=== PATIENT | female | born 1990 | race Hispanic/Latino ===

== ENCOUNTER 2017-01-13 20:21 | Emergency (ER) | payer MEDICARE, MEDICAID ==
[~2017-01-13] VITALS: Ht 172.7 cm; Wt 50.0 kg
[~2017-01-13 20:21] MED LIST: AMLO10TA3 PO; CLON1PAT14 TD; LOSA100T3 PO; METO-274 PO; MYCO360T3 PO; PRE20 PO; SEVE800T7 PO; WARF5TAB7 PO
[2017-01-13 20:23] VITALS: BP 157/108; PULSE 72; RESP 20; O2SAT 100
[2017-01-13 21:01] LABS: BASOPHILS % (AUTO) 0.2 % (0-3); EOSINOPHILS % (AUTO) 1.9 % (0-5); MONOCYTES % (AUTO) 8.6 % (4-12); Mean Corpuscular Volume 98.3 fL (81-100); NEUTROPHILS % (AUTO) 55.2 % (40-74)
[2017-01-13 21:16] LABS: Platelet Count 47 bil/L (150-400)
[2017-01-13 21:30] VITALS: BP 140/77; PULSE 55; RESP 16; O2SAT 99
--- NOTE | 2017-01-13 21:38 | ED.REPORT ---
HPI-General Illness Date of Service Jan 13, 2017 ED Provider: Richy Mcgill MD A 26 year old female with an extensive medical history including systemic lupus , idiopathic thrombocytopenic purpura, PE, hypertension, anemia, and ESRD on hemodialysis presents to the ED from Urgent Care with lightheadedness onset 1440 today, while sitting on the couch. Associated symptoms include dizziness, subjective fever, chills, diaphoresis, and confusion. Her symptoms resolved at 1800 after drinking a Coca-Cola, although she reports dizziness currently. The patient also reports one episode of melena one week ago. She denies chest pain, SOB, loss of consciousness, focal weakness, or other symptoms. The patient has had similar symptoms in the past associated with anemia, requiring a blood transfusion. She dialyzes M//. Nursing Notes Stated Complaint: LIGHT HEADED, DIZZY Chief Complaint: General Complaint Nursing Notes Reviewed: Yes Allergies: Coded Allergies: prazosin (Verified Adverse Reaction, Intermediate, anxiety, 09/16/16) zolpidem (Verified Adverse Reaction, Intermediate, 09/16/16) 05/09/15 Pt denies allergy but states she just doesn't want to take this because "my sister got addicted to it." Uncoded Allergies: IVORY SOAP (Allergy, Intermediate, 02/16/16) Scheduled Amlodipine (Amlodipine) 10 Mg Tablet 10 MG PO HS Clonidine HCl (Clonidine 0.1 mg/24 hr Tdrm Patch) 1 Each Patch.tdwk 1 PATCH TD WEEKLY Losartan Potassium (Cozaar) 100 Mg Tablet 100 MG PO HS Metoprolol Succinate ER (Metoprolol Succinate ER) 100 Mg Tab.er.24h 100 MG PO DAILY Prednisone (PredniSONE) 20 Mg Tablet 40 MG PO DAILY Sevelamer Carbonate (Renvela) 800 Mg Tablet 800 MG PO TID Warfarin Sodium (Warfarin Sodium) 5 Mg Tablet 5 MG PO DAILY Miscellaneous Medications Mycophenolate DR (Mycophenolic DR) 360 Mg Tablet 720 MG PO General Time Seen by MD: 21:33 Chief Complaint Other (Lightheadedness) Hx Obtained From: Patient Arrived By: Walk-in Sudden in Onset?: Yes Onset Occurred: 5 - 8 hours ago Symptom Duration: 1 - 4 hours Severity: Current: No pain currently Severity: Maximum: No pain Associated with: Reports: Diaphoresis, Fever, Denies: Chest pain, Shortness of breath Context Related History: Reports Autoimmune disorder, Reports Depression, Reports Psychiatric history Recent Healthcare: No recent doctor visit Similar Sx Previous: Yes Past Medical History Past Medical History Notes: PCP: Dr. Hanson Senior Research Associate: Dr. Cook Biological Scientist: Dr. 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 Endoscopy. Colonoscopy. Portocath. Fistula. Reports: Cholecystectomy Family History Reviewed, not relevant. Smoking History Former Smoker Social History Alcohol Use: Denies alcohol use Drug Use: THC Other Social History: Local resident Ambulatory Status Independent Review of Systems Full Review of Systems Constitutional: Reports: Chills (Resolved), Fever (Subjective, Resolved) Respiratory: Denies: Non-productive cough, Shortness of breath Cardiovascular: Denies: Chest pain GI: Reports: Melena (x1, one week ago), Denies: Diarrhea, Vomiting Skin: Reports Diaphoresis (Resolved) Neurologic: Reports: Dizziness, Lightheaded (Resolved), Denies: Change LOC, Focal weakness Psychiatric: Reports: Confusion (Resolved) Complete sys rev & neg: except as marked. Physical Exam Vital Signs Vital Signs Date Time Temp Pulse Resp B/P Pulse Ox O2 Delivery O2 Flow Rate FiO2 01/14/17 02:17 64 16 155/84 98 Room Air 01/14/17 01:23 36.6 01/14/17 01:23 68 16 132/69 98 Room Air 01/13/17 23:28 60 16 150/87 98 Room Air 01/13/17 21:30 55 16 140/77 99 Room Air 01/13/17 20:23 36.7 72 20 157/108 100 Room Air Initial VS: Reviewed, Vital signs abnormal Head / Eyes: Atraumatic, Normocephalic ENT: Conjunctiva normal, No scleral icterus Neck: Supple, Full range of motion Skin: Warm, Dry, No cyanosis Neurologic: Alert, Oriented, Nonfocal Psychiatric: Mood/affect normal, Behavior normal, Normal thought content General/Constitutional: Awake, Alert, No acute distress, Well developed Appearance / Presentation: Positive: Pale (Mild) Respiratory / Chest: Breath sounds NL, Breath sounds = bilat, No respiratory distress Cardiovascular: Heart rate NL, Regular rhythm, Heart sounds NL, No gallop, No murmurs, No rubs Abdomen: Soft Tenderness/Guarding/Rebound: Positive: Tender LLQ... (Mild), Tender LUQ... ( Mild) Interpretation & Diagnostics URINE TEST: Negative URINE DIPSTICK: 1.000 sp gravity 9 pH ++(100) Protein 50mg/dl Glucose Normal Urobilinogen ~250 Charan/ml Occult Blood Otherwise Negative Lab Results Interpretation Result Diagram: 01/13/17205101/14/17 012 Test 01/13/17 20:52 01/13/17 21:46 01/14/17 01:26 White Blood Count 4.6th/mm3 (3.8-10.1) Red Blood Count 3.47mil/mm3 (3.90-5.20) Hemoglobin 11.1g/dL (12.0-15.6) Hematocrit 34.1% (35.0-46.0) Mean Corpuscular Volume 98.3fL (81-100) Mean Corpuscular Hemoglobin 32.0pg (27.0-35.0) Mean Corpuscular Hemoglobin Concent 32.6% (32.0-37.0) Red Cell Distribution Width 14.6% (12.3-15.4) Platelet Count 47bil/L (150-400) Neutrophils (%) (Auto) 55.2% (40-74) Lymphocytes (%) (Auto) 34.1% (14-46) Monocytes (%) (Auto) 8.6% (4-12) Eosinophils (%) (Auto) 1.9% (0-5) Basophils (%) (Auto) 0.2% (0-3) Prothrombin Time 10.1sec (8.1-12.5) Prothromb Time International Ratio 0.95ratio Sodium Level 138mEq/L (134-144) Chloride Level 98mEq/L (97-108) Carbon Dioxide Level 25mmol/L (18-29) Blood Urea Nitrogen 39mg/dL (6-20) Creatinine 8.75mg/dL (0.57-1.00) Estimat Glomerular Filtration Rate 8mL/min (>59) Glucose Level 88mg/dL (60-99) Calcium Level 8.4mg/dL (8.5-10.1) Total Bilirubin 0.3mg/dL (0.0-1.2) Aspartate Amino Transf (AST/SGOT) 21U/L (0-50) Alanine Aminotransferase (ALT/SGPT) 15U/L (0-32) Alkaline Phosphatase 100U/L (25-150) Total Protein 7.3g/dL (6.4-8.4) Albumin 4.2g/dL (3.4-5.0) Hold Ubrroughs Top Tube Received (Received) Hold Urine Received (Received) Potassium Level 6.2mEq/L (3.5-5.2) Lab Results Interpretation: Hyperkalemia, CKD ECG Interpretation ECG Interpretation: Sinus rhythm rate 55 Time: 22:20 Interpreted by: ED physician Re-Eval/Medical Decision Med Decision/Clinical Course 26-year-old female with chronic kidney disease scheduled for dialysis at 10:00 this morning. She presents with some general malaise and lightheadedness. She is found to have mild chronic anemia and hyperkalemia at 6.5. She refused Kayexalate. She was given Lasix and hydration. Her K dropped from 6.5-6.2. She has no EKG changes. She will receive dialysis this a.m. as previously scheduled. She will return here if she has further problems. Source of Hx: Old records Time of Eval: 02:00 Patient Status: Condition improved Re-Evaluation/Progress Note: Discussed with patient lab results, diagnosis, and plan for discharge. Follow-up and return to the ER instructions given. Patient agrees with plan for care and all questions were addressed. Counseled Regarding: Diagnosis, Lab results, Need for follow-up, When/why to return to ED Discharge & Departure Primary Impression: Hyperkalemia Disposition: Home Discharge Condition All VS Reviewed: Yes Condition: Improved Patient Instructions: Hyperkalemia Adult (ED) Additional Instructions: Your potassium was high at 6.5. It came down to 6.2. There are no EKG changes. Keep your dialysis appointment as scheduled today to remove the remainder of the extra potassium. Referrals: Jose Hanson DO (PCP) Scribe Attestation Portions of this note were transcribed by Teodora Nur. I, Dr. Mcgill, personally performed the history, physical exam, and medical decision-making; I reviewed and confirmed the accuracy of the information in the transcribed note. Signed by: Seda Flores, 01/14/2017, 02:40 copies to: Jose Hanson DO Leibrand, Howard L MD Jan 13, 2017 21:38 TEODORA NUR Jan 13, 2017 22:08
[2017-01-13] MEDS ORDERED: Furosemide 10 mg/mL 2 mL Inj IVPUSH ONE (21:55)
[2017-01-13] MEDS ORDERED: 0.9% Sodium Chloride 500 ML IV ONE (21:55)
[2017-01-13] MEDS ORDERED: LORazepam 0.5 mg Tablet PO ONE (22:20)
[2017-01-13 22:43] LABS: INR 0.95 ratio
[2017-01-13 23:28] VITALS: BP 150/87; PULSE 60; RESP 16; O2SAT 98
[2017-01-14] MEDS ORDERED: Sodium Polystyrene Sulfonate 0.25 Gm/mL 500 mL Suspension PO ONE (00:30)
[2017-01-14 01:23] VITALS: BP 132/69; PULSE 68; RESP 16; O2SAT 98
[2017-01-14 02:17] VITALS: BP 155/84; PULSE 64; RESP 16; O2SAT 98
== END 2017-01-14 02:25 | disposition home or self-care (01) ==
LOC: SED 20:21
DX: E87.5 Hyperkalemia (principal); I12.0 Hypertensive chronic kidney disease with stage 5 chronic kidney disease or end stage renal disease; N18.6 End stage renal disease; D69.3 Immune thrombocytopenic purpura; M32.9 Systemic lupus erythematosus, unspecified; D63.1 Anemia in chronic kidney disease; Z99.2 Dependence on renal dialysis; F12.10 Cannabis abuse, uncomplicated; Z86.711 Personal history of pulmonary embolism; Z79.52 Long term (current) use of systemic steroids; Z79.01 Long term (current) use of anticoagulants; Z88.8 Allergy status to other drugs, medicaments and biological substances
CPT/HCPCS: 80053; 84132; 85025; 85610; 93005; 96374; 99285; J1940; J7040

== ENCOUNTER 2017-02-16 14:30 | Observation (INO) | payer MEDICARE, MEDICAID ==
[~2017-02-16] VITALS: Ht 152.4 cm; Wt 45.9 kg
[2017-02-16 14:32] VITALS: BP 119/83; PULSE 71; RESP 18; O2SAT 100
--- NOTE | 2017-02-16 15:01 | ED.REPORT ---
HPI-Chest Pain Under 40 Date of Service February 16, 2017 ED Provider: Hank Courtney MD 26 y/o female with a hx of CHF, PE, HTN and ESRD on hemodialysis presents to the ED complaining of non-radiating substernal chest pain, onset 0500 after she woke up. The pt reports the pain is more like a pressure with a "cold feeling" and rates it 7/10. She states it worsens when she lays down or walks around but is slightly better upon sitting up. Associated sx include mild SOB and mild palpitations. She states she also has diaphoresis at night and nausea, both of which are baseline for her. The pt denies cough, edema and hx of DVT. She also denies any association of her sx with dialysis. Her sx are similar to the sx before when she was diagnosed with pneumonia. She states her sx are not as severe as they were when she was diagnosed with PE. She is currently taking antibiotics for a UTI. She is not taking any blood thinners. Nursing Notes Stated Complaint: CHEST PAIN Chief Complaint: Chest Pain Nursing Notes Reviewed: Yes ([facility] not reconciled) Allergies: Coded Allergies: prazosin (Verified Adverse Reaction, Intermediate, anxiety, 09/16/16) zolpidem (Verified Adverse Reaction, Intermediate, 09/16/16) 05/09/15 Pt denies allergy but states she just doesn't want to take this because "my sister got addicted to it." Uncoded Allergies: IVORY SOAP (Allergy, Intermediate, 02/16/16) Scheduled Amlodipine (Amlodipine) 10 Mg Tablet 10 MG PO QAM Losartan Potassium (Losartan Potassium) 100 Mg Tablet 100 MG PO QAM Metoprolol Succinate ER (Metoprolol Succinate ER) 100 Mg Tab.er.24h 100 MG PO QAM Omeprazole (Omeprazole) 20 Mg Capsule.dr 20 MG PO DAILY Sevelamer Carbonate (Renvela) 800 Mg Tablet 800 MG PO TIDWM Zolpidem (Zolpidem) 5 Mg Tablet 5 MG PO HS General Time Seen by MD: 14:45 Chief Complaint Chest pain Hx Obtained From: Patient Arrived By: Walk-in Sudden in Onset?: Yes Onset Occurred: Yesterday Symptom Duration: Since onset Location: : Substernal Quality: Pressure Radiation: : Does not radiate Severity: Current: Pain level 7 out of 10 Severity: Maximum: Pain level 7 out of 10 Recent Healthcare: No recent doctor visit Similar Sx Previous: Yes Past Medical History Past Medical History Notes: PCP: Dr. Hanson Postdoctoral Research Associate: Dr. Cook Automatic Lump Making Machine Tender: Dr. 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 Endoscopy. Colonoscopy. Portocath. Fistula. Reports: Cholecystectomy Family History Reviewed, not relevant. Smoking History Former Smoker Social History Alcohol Use: Denies alcohol use Drug Use: THC Other Social History: Local resident Ambulatory Status Independent Review of Systems Respiratory: Reports: Shortness of breath, Denies: Non-productive cough Cardiovascular: Reports: Chest pain, Palpitations, Denies: Edema Complete sys rev & neg: except as marked. Physical Exam Initial Vital Signs Vital Signs (First) Date Time Temp Pulse Resp B/P Pulse Ox O2 Delivery O2 Flow Rate FiO2 02/16/17 14:32 36.4 71 18 119/83 100 Room Air Initial VS: Reviewed, Vital signs normal Head / Eyes: Atraumatic, Normocephalic, PERRL Neck: Supple, Non-tender, Full range of motion Abdomen / GI: Soft, Non-tender, No guarding, No rebound, No distention Extremities: Vascular intact, Neuro intact, No swelling, No tenderness Skin: Warm, Dry, No cyanosis Neurologic: Alert, Oriented, Nonfocal General/Constitutional: Awake, Alert, Cooperative Appearance / Presentation: Positive: Cachectic, Frail Respiratory / Chest: Atraumatic, Breath sounds NL, Breath sounds = bilat, No respiratory distress, No rales, No rhonchi, No wheezing Not hypoxic. Cardiovascular: Heart rate NL, Regular rhythm, Heart sounds NL, No gallop, No murmurs, No rubs Interpretation & Diagnostics Lab Results Interpretation Result Diagram: 02/16/17 1458 02/16/17 1458 Test 02/16/17 14:58 White Blood Count 4.1th/mm3 (3.8-10.1) Red Blood Count 3.92mil/mm3 (3.90-5.20) Hemoglobin 12.9g/dL (12.0-15.6) Hematocrit 37.5% (35.0-46.0) Mean Corpuscular Volume 95.7fL (81-100) Mean Corpuscular Hemoglobin 32.9pg (27.0-35.0) Mean Corpuscular Hemoglobin Concent 34.4% (32.0-37.0) Red Cell Distribution Width 13.5% (12.3-15.4) Platelet Count 51bil/L (150-400) Neutrophils (%) (Auto) 57.5% (40-74) Lymphocytes (%) (Auto) 28.3% (14-46) Monocytes (%) (Auto) 12.8% (4-12) Eosinophils (%) (Auto) 1.0% (0-5) Basophils (%) (Auto) 0.2% (0-3) Sodium Level 138mEq/L (134-144) Potassium Level 3.4mEq/L (3.5-5.2) Chloride Level 90mEq/L (97-108) Carbon Dioxide Level 30mmol/L (18-29) Blood Urea Nitrogen 12mg/dL (6-20) Creatinine 4.60mg/dL (0.57-1.00) Estimat Glomerular Filtration Rate 17mL/min (>59) Glucose Level 84mg/dL (60-99) Calcium Level 9.3mg/dL (8.5-10.1) Magnesium Level 1.8mg/dL (1.6-2.6) Total Bilirubin 0.4mg/dL (0.0-1.2) Aspartate Amino Transf (AST/SGOT) 21U/L (0-50) Alanine Aminotransferase (ALT/SGPT) 10U/L (0-32) Alkaline Phosphatase 98U/L (25-150) Troponin T < 0.010ug/L (0.0-0.011) Total Protein 8.4g/dL (6.4-8.4) Albumin 4.4g/dL (3.4-5.0) Hold Burroughs Top Tube Received (Received) Lab Results Interpretation: CBC mild thrombocytopenia (chronic) CMP chronic renal failure, post dialysis Troponin negative ECG Interpretation ECG Interpretation: Normal sinus rhythm. Rate 63 Inverted T waves, V2, V3 and possibly V4, which is new compared to previous ECG on 01/13/17. Time: 14:46 Interpreted by: ED physician X-Ray Chest Interpretation Chest Xray Interpretation: IMPRESSION: No acute cardiopulmonary disease. Dictated by: Arnold Rachel M.D. on 02/16/2017 at 15:15 Approved by: Arnold Rachel M.D. on 02/16/2017 at 15:15 View: Portable, 1 view Interpretation / Wet Read by: Interpret - Radiologist Re-Eval/Medical Decision Med Decision/Clinical Course This is a 26-year-old female very complex past medical history who presents with an atypical chest discomfort, with a pressure discomfort, a slight shortness of breath on exertion, and a "cold feeling". Or, she denies cough, but wonders about pneumonia as a possibility. She has had prior pulmonary embolus in the past, but is not on anticoagulation at this stage due to a history of lupus-induced thrombocytopenia. Her lupus is also caused chronic renal failure and she was just dialyzed today. On exam she clinically appears well-she does not appear in physical discomfort, she is not appear toxic or ill. Her vitals are entirely normal-she is afebrile , has a normal respiratory rate, she is not tachycardic, nor she hypoxic. Her lungs are clear, I do not appreciate a murmur. Her abdomen is soft and non- tender. She has no edema. Her EKG is noted for new T-wave inversion that is nonspecific in the anterior waist V2, V3, possibly before-as compared to an EKG from 1 month ago. But she has no specific findings, no overt findings of ischemia, no findings of pericarditis (condition she has had previously as well) Her labs are reassuring, but also post dialysis. A troponin is negative. As the patient is had several CTs before, and she is immediately post dialysis which makes her poor candidate for CT contrast studies, and the fact that previous VQ imaging has been generally intermediate-in a patient with a complex history of multiple concerning items, and a nonspecific, yet changed EKG-I requested an echocardiogram to see if that would provide further direction or identify dangerous pathology. Discussed the case with the general lot attendant who knows her, who agreed that this was a reasonable approach. The echocardiogram however was interpreted by the insurance operations rep as normal. Admission abnormalities of an acute ischemia, no findings of pericarditis, no effusion, and no findings of strain from a pulmonary embolus. This too was reassuring With EKG abnormalities, the complexity of the patient's baseline-the plan is observation. The case is discussed the hospitalist who requested cardiology consultation. Discussed the case with the insurance operations rep to indicates that in the setting of the normal echocardiogram, nonspecific symptoms, he would not recommend heparinization, or anticoagulation. Again the patient remains chronically thrombocytopenic with a higher increased risk of bleeding complications, and does not have hard clinical findings of pulmonary embolus either. So at this point cardiology, nephrology, medicine and myself are in agreement that in this setting of this complex patient most prudent action is simply to to watch the patient overnight and clinically monitor At this stage a dangerous etiology has not been determined. Source of Hx: Old records Re-Evaluation/Progress : Time of Eval: 17:55 Re-Evaluation/Progress Note: Pt rechecked. Discussed lab, imaging results and plan to admit. Pt understands and agrees with the plan for admission. All questions addressed. Consultation #1: Referral / Consult Name: Braden Scruggs MD Consulted With: Nephrology Call Returned at: 16:49 Grain Receiver: Will see patient, Agrees with eval, Agrees with plan Consultation #2: Referral / Consult Name: Jose Campbell DO Consulted With: Hospitalist Call Returned at: 17:11 Grain Receiver: Will see patient, Agrees with eval, Agrees with plan, Accepts admit Consultation #3: Referral / Consult Name: Damien Gtz MD Consulted With: Cardiology Call Returned at: 17:30 Grain Receiver: Agrees with eval, Agrees with plan Note: Dr. Gtz read the EKG and agrees that it is normal. Counseled Regarding: Diagnosis, Lab results, Need for admission Discharge & Departure Primary Impression: Chest pain Chest pain type: unspecified Qualified Code: R07.9 - Chest pain, unspecified Additional Impressions: Abnormal EKG Chronic renal failure Chronic kidney disease stage: unspecified stage Qualified Code: N18.9 - Chronic kidney disease, unspecified Thrombocytopenia Lupus Systemic lupus erythematosus type: unspecified Systemic lupus erythematosus organ involvement: unspecified Qualified Code: M32.9 - Systemic lupus erythematosus, unspecified Disposition: ADMITTED TO HOSPITAL Discharge Condition All VS Reviewed: Yes Referrals: Jose Hanson DO (PCP) Scribe Attestation Portions of this note were transcribed by Carloz Moore. I, , personally performed the history, physical exam and medical decision-making;I reviewed and confirmed the accuracy of the information in the transcribed note. Signed by Seda Posada. 02/16/17 [id number] copies to: Jose Hanson DO Russell, Matthew F MD February 16, 2017 15:01 Carloz Moore February 16, 2017 15:07
[2017-02-16] MEDS ORDERED: HYDROmorphone 0.5 mg/0.5 mL iSecure Syringe IVPUSH PRN (15:05)
[2017-02-16] MEDS ORDERED: Ondansetron 2 mg/mL 2 mL Inj IVPUSH ONE (15:05)
[2017-02-16 15:10] VITALS: BP 119/81; PULSE 72; RESP 15; O2SAT 100
[2017-02-16 15:15] LABS: NEUTROPHILS % (AUTO) 57.5 % (40-74)
--- NOTE | 2017-02-16 15:16 | DRSVH ---
PROCEDURE: X-RAY CHEST ONE VIEW, PORTABLE ([id number]) INDICATIONS: CHEST PAIN TECHNIQUE: One view of the chest was acquired. COMPARISON: [facility], CR, XR CHEST 1VW (PORTABLE), 02/26/2016, 13:23. FINDINGS: Surgical changes and devices: None. Lungs and pleura: No pleural effusions or pneumothorax. Lungs are clear. Mediastinum: Mediastinal contours appear normal. Heart size is normal. Bones and chest wall: No suspicious bony lesions. Overlying soft tissues appear unremarkable. IMPRESSION: No acute cardiopulmonary disease. Dictated by: Arnold Rachel M.D. on 02/16/2017 at 15:15 Approved by: Arnold Rachel M.D. on 02/16/2017 at 15:15
[2017-02-16 15:17] LABS: BASOPHILS % (AUTO) 0.2 % (0-3); MONOCYTES % (AUTO) 12.8 % (4-12); Mean Corpuscular Hemoglobin 32.9 pg (27.0-35.0); Mean Corpuscular Volume 95.7 fL (81-100)
[2017-02-16 15:27] LABS: Platelet Count 51 bil/L (150-400)
[2017-02-16] MEDS ORDERED: HYDROmorphone 1 mg/mL Inj IVPUSH PRN (15:30)
[2017-02-16 15:36] LABS: TROPONIN T < 0.010 ug/L (0.0-0.011)
[2017-02-16 15:45] LABS: Magnesium 1.8 mg/dL (1.6-2.6)
[2017-02-16 16:00] VITALS: BP 113/56; PULSE 60; RESP 17; O2SAT 97
[2017-02-16] MEDS ORDERED: LOSA100T29 PO (17:02)
[2017-02-16] MEDS ORDERED: ZOLP5TAB6 PO (17:03)
[2017-02-16] MEDS ORDERED: OMEP20CA11 PO (17:03)
--- NOTE | 2017-02-16 17:28 | DRSVH ---
[facility] [address] [place] [place] [address] Echocardiogram Report Name: MATTEO JAMES te: 02/16/2017 Height: 60 in Hospital Exam Location: [facility] Weight: 99 lb Gender: Female BSA: 1.4 m2 : 1990 Age: 26 yrs BP: 119/81 mmHg Reason For Study: Chest pain Ordering Physician: Performed By: [facility] Interpretation Summary The left ventricle is normal in size, wall thickness, and systolic function without any focal wall motion abnormalities. The ejection fraction is estimated to be 60-65%. The right ventricle is normal in size, thickness and function. The left atrial size is normal. Right atrial size is normal. There is no significant valvular heart disease. The aortic root is normal size. Pericardial effusion has resolved. Procedure: A two-dimensional transthoracic echocardiogram with color flow and Doppler was performed. The study quality was technically good. Comparison is made with the echocardiogram of 12-26-15. The patient was in normal sinus rhythm during the exam. Left Ventricle: The left ventricle is normal in size, wall thickness, and systolic function without any focal wall motion abnormalities. The ejection fraction is estimated to be 60-65%. Assessment of diastolic parameters indicates normal left ventricular diastolic function and normal filling pressures. Right Ventricle: The right ventricle is normal in size, thickness and function. Atria: The left atrial size is normal. Right atrial size is normal. The interatrial septum is intact with no evidence for an atrial septal defect. Mitral Valve: The mitral valve is normal. Aortic Valve: The aortic valve is trileaflet. The aortic valve opens well. No aortic regurgitation is present. Tricuspid Valve: The tricuspid valve is normal in structure and function. There is trace tricuspid regurgitation. The right ventricular systolic pressure is estimated at 32 mmHg assuming a right atrial pressure of 3 mm Hg. Pulmonic Valve: The pulmonic valve is normal in structure and function. There is trace pulmonic regurgitation. There is no significant valvular heart disease. Great Vessels: The aortic root is normal size. The dimensions of the ascending aorta are normal. The IVC is of normal diameter and collapses greater than 50% with a sniff. This suggests a low right atrial pressure of 3 mm Hg. Pericardium/ Pleura There is no pericardial effusion. There is no pleural effusion. MMode/2D Measurements & Calculations LVIDd: 4.2 cm LA dimension: 2.6 cm RA long axis LVOT diam LVIDs: 2.3 cm FS: 43.8 % LA A2 area: 14.3 cm RA area Ao root diam EPSS: 0.49 cm LA A4 area: 14.5 cm IVSd: 0.78 cm LA length (vol): 4.2 cm : 11.0 cm Aortic Jxn LVPWd: 0.89 cm LA vol: 42.1 ml RA vol: 21.7 ml LA vol index RA asc Aorta : 15.7 mm2 Diam: 3.1 cm : 30.4 ml/m2 LV silveira. diameter/BSA LV sys. diameter/BSA (cm/m^2): 3.0 (cm/m^2): 1.7 Doppler Measurements & Calculations Ao V2 max: 126.0 cm/secMV E max elijah MV E/A: 1.3 TR max elijah Ao max P.3 mmHg : 69.1 cm/sec Med Peak E' Elijah : 268.5 cm/sec Ao mean P.6 mmHg MV A max elijah TR max PG : 53.5 cm/sec E/E' med: 8.6 : 28.8 mmHg MV P1/2t Lat Peak E' Elijah PA V2 max : 62.6 msec : 66.2 cm/sec E/E' lat: 7.6 PA mean PG E/e' average PA Accel Time Pulm A Revs Dur : 0.14 sec MV A dur : 0.12 sec MV dec time: 0.21 sec MV P1/2t max elijah Ao V2 mean PA V2 mean : 89.3 cm/sec : 52.5 cm/sec MVA(P1/2t) Ao V2 VTI : 27.2 cm : 3.5 cm2 Pulm A Revs Dur - MV A Dur: -0.00 msec Reading Physician:DARRICK
[2017-02-16] MEDS ORDERED: Polyethylene Glycol (PEG) 17 Gm Powder PO PRN (18:10)
[2017-02-16] MEDS ORDERED: Ondansetron 2 mg/mL 2 mL Inj IVPUSH PRN (18:10)
[2017-02-16] MEDS ORDERED: Alum-Mag Hydrox-Simeth 30 mL Suspension PO PRN ×2 (18:10)
--- NOTE | 2017-02-16 18:31 | PCM.HPMED ---
Subjective Date of Service February 16, 2017 Primary Provider: Admitting Physician: Primary Care Physician: Jose Hanson DO Attending Physician: Chief Complaint: chest pain History of Present Illness: 25-year-old chronically ill female with multiple admissions for complications of systemic lupus erythematosus with past admissions for cytopenias, anemia, problems with opinion and lupus nephritis which was eventually led to end-stage renal disease now on hemodialysis. Patient has extensive medical history as listed below including ITP, PE, CHF and hypertension. Patient presents to the ER today due to substernal chest pain that began at 5 AM this morning and awoke her from sleep. Associated symptoms this chest pain include shortness of breath , diaphoresis and palpitations - but does note she usually has diaphoresis nausea at night which is baseline. Describes as pressure, rated 7 out of 10, no radiation and reports symptoms worse when lying down or with walking. Does report improvement in pain when sitting up. During her previous PE admission, patient states her symptoms without time were more severe than present symptoms. current infection includes a UTI for which she is taking antibiotics and is finishing her last day today. Patient sees Dr. Cook of rheumatology infrequently for her lupus and Dr. White of nephrology. Patient denies travel or sick contacts, currently not taking prednisone. Has a son at home and is independent. Has been on dialysis for 12 months now. Patient endorses a significant anxiety and stress over her current medical condition and states it all became a little too much over the last few days. Her sister about this and has just been feeling more anxiety regarding her current medical challenges. Patient uses Ambien for sleep most nights. Has used Ativan in the past and tolerated for anxiety. Review of Systems: Complete review of systems unremarkable unless stated in history of present illness Allergies Coded Allergies: prazosin (Verified Adverse Reaction, Intermediate, anxiety, 09/16/16) zolpidem (Verified Adverse Reaction, Intermediate, 09/16/16) 05/09/15 Pt denies allergy but states she just doesn't want to take this because "my sister got addicted to it." Uncoded Allergies: IVORY SOAP (Allergy, Intermediate, 02/16/16) Home Medications Patient takes amlodipine 10 mg daily Losartan 100 mg daily Metoprolol extended release 100 mg daily Sevelamer carbonate 800 mg 3 times a day with meals Zolpidem 5 mg each evening as needed for sleep Ciprofloxacin 250 mg, on her last dose this evening for UTI Omeprazole 20 mg daily PMH Systemic lupus erythematosus with associated lupus nephritis and Idiopathic Thrombocytopenic Purpura h/o Hypotension secondary to lupus nephritis Anxiety depression history of suicide attempt by overdose Gallbladder stones status post cholecystectomy Breast abscess status post post removal And reportedly a history of MRSA abscess ESRD on hemodialysis h/o ivc thrombus descending aortic thrombus h/o Pulmonary embolism Cephalgia with possible cervicogenic etiology Anemia secondary to chronic kidney disease Metabolic acidosis Reports: Hypertension Reports: Depression Surgical History Breast complex abscess resected. Endoscopy. Colonoscopy. Portocath. Fistula. Reports: Cholecystectomy Family History noncontributory Social History Hx Alcohol Use: No Hx Substance Use: Yes (smokes marijuana daily) Hx Tobacco Use: Yes Smoking Status: Former Smoker Exam Vital Signs Vital Sign - Last Date Time Temp Pulse Resp B/P Pulse Ox O2 Delivery O2 Flow Rate FiO2 02/16/17 15:10 72 15 119/81 100 Room Air 02/16/17 14:32 36.4 Exam Gen.: Alert, pleasant HEENT: Normocephalic atraumatic, pupils equal round and reactive to light and accommodation, moist membranes Neck: No JVD, no lymphadenopathy Cardiac: No rubs clicks murmurs or gallops, regular rate Pulmonary: No wheezes rales or rhonchi, clear to auscultation bilaterally GI: Abdomen soft, mildly tender diffusely, no guarding or peritoneal symptoms, nondistended, normal bowel sounds Extremities: No clubbing, cyanosis, edema, pulses intact 2+ at pedis bilaterally Psychiatric: Mildly melancholic mood and normal affect Neuro: Cranial nerves II through XII grossly intact, no focal deficits Lab and Diagnostics Result Diagram: 02/16/17 1458 02/16/17 1458 X-Rays, CTs and MRIs Normal chest x-ray Cardiac Echo Impressions 02/16 cardiac echo Interpretation Summary The left ventricle is normal in size, wall thickness, and systolic function without any focal wall motion abnormalities. The ejection fraction is estimated to be 60-65%. The right ventricle is normal in size, thickness and function. The left atrial size is normal. Right atrial size is normal. There is no significant valvular heart disease. The aortic root is normal size. Pericardial effusion has resolved. Assessment & Plan 26-year-old female with a competent medical history including lupus, lupus nephritis leading to end-stage renal disease, history of ITP, PE (full history above ) who presents with positional chest pain and T-wave inversions in anterior leads on EKG. Chest pain- possibly related to anxiety/stress since chest pain began a couple days ago with negative troponins now, we will rule out ACS and the differential broad given her medical history including PE although no significant strain on echo done in ER, also no pericardial effusion noted on echo, differential also includes GERD/gastritis but patient does take a PPI at home -Trend cardiac markers, repeat EKG -When necessary morphine for pain - When necessary lorazepam for anxiety -Continue metoprolol 100 mg ER daily - Continue home regimen omeprazole 20 mg - Monitor on telemetry - Currently saturating well off oxygen, if needed, supplemental oxygen for goal saturations greater than 93% - Given echo without any signs of right heart strain, cardiology consultation- we will discuss in the morning after overnight monitoring regarding possible stress test Chronic medical conditions Lupus nephritis leading to End-stage renal disease, dialysis on Tuesday, usually sees Dr. White, continue Renvelao Lupus-stable, currently not on steroids History of constipation-when necessary stool softeners Insomnia-when necessary Ambien ordered History of depression with anxiety-consider SSRI, we will start when necessary lorazepam as noted above GERD-continue omeprazole as noted above Hypertension-continue amlodipine 10 mg daily and metoprolol 100 mg ER daily as noted above History of ITP-platelets of 51, monitor daily CBC Pain Evaluation: Adequate Pain Control GI Prophylaxis: Proton Pump Inhibitor VTE Prophylaxis: Sub-Q Heparin (Unfractionated) Resuscitation Status: CPR: Attempt Resuscitation Time spent 40 minutes spent with the evaluation and management including admission and coordination of care. Greater than 50% of time spent [id number] Jose Campbell DO February 16, 2017 17:27
[2017-02-16 18:38] VITALS: BP 126/69; PULSE 69; RESP 18; O2SAT 99
--- NOTE | 2017-02-16 19:00 | NUR ---
Admit patient arrived floor via shift change got report from off going lapper Dx CP ,s/p dialysis today. Up ind son currently in room await cousin to p/u, medicated for nausea and anxiety w/prescribed prns currently w/o CP, placed on telemetry SR w/occ brenda, plan monitor heart and cardio re-eval in AM
[2017-02-16] MEDS: Ondansetron 2 mg/mL 2 mL Inj IVPUSH PRN (19:55)
[2017-02-16 20:04] VITALS: BP 111/73; PULSE 64; RESP 16; O2SAT 96
[2017-02-17] MEDS: Sodium Chloride LOK Flush 10 mL Syringe IVFLUSH SCH ×2 (00:40→07:52)
[2017-02-17] MEDS: Heparin 5,000 Unit/mL Inj SUBQ SCH ×2 (00:53→07:52)
[2017-02-17 05:18] VITALS: PULSE 56
[2017-02-17 05:43] LABS: BASOPHILS % (AUTO) 0.5 % (0-3)
[2017-02-17 05:48] LABS: EOSINOPHILS % (AUTO) 1.5 % (0-5); MONOCYTES % (AUTO) 10.2 % (4-12); Mean Corpuscular Hemoglobin 32.4 pg (27.0-35.0); Mean Corpuscular Volume 98.4 fL (81-100); Platelet Count 44 bil/L (150-400)
[2017-02-17 06:00] VITALS: BP 118/75; PULSE 57; RESP 16; O2SAT 99
[2017-02-17 06:07] LABS: Magnesium 2.1 mg/dL (1.6-2.6)
[2017-02-17] MEDS ORDERED: Pantoprazole 20 mg ER24 Tablet PO SCH (06:30)
[2017-02-17] MEDS: Ondansetron 2 mg/mL 2 mL Inj IVPUSH PRN ×2 (07:46→11:10)
[2017-02-17 08:00] VITALS: PULSE 72
[2017-02-17] MEDS ORDERED: MeTOProlol XL 50 mg ER24 Tablet PO SCH (08:30)
--- NOTE | 2017-02-17 10:24 | NUR ---
Case Management: RUIZ and Medicare Part D pamphlet were delivered and explained to pt. Original signed/dated/timed placed in pt. chart. Copy left at bedside. Cassy Nielson RN
[2017-02-17] MEDS ORDERED: HYDROmorphone 0.5 mg/0.5 mL iSecure Syringe IVPUSH PRN (11:20)
--- NOTE | 2017-02-17 11:34 | PCM.DIMED ---
Discharge Instructions Date of Service February 17, 2017 Dates of Hospitalization February 16, 2017 at 17:42 Discharge Diagnosis Discharge Diagnosis Chest pain likely related to anxiety/stress from overall medical condition with history of underlying depression Chronic medical conditions Systemic lupus erythematosus with associated lupus nephritis and Idiopathic Thrombocytopenic Purpura h/o Hypotension secondary to lupus nephritis Anxiety depression history of suicide attempt by overdose Gallbladder stones status post cholecystectomy Breast abscess status post post removal And reportedly a history of MRSA abscess ESRD on hemodialysis h/o ivc thrombus descending aortic thrombus h/o Pulmonary embolism Cephalgia with possible cervicogenic etiology Anemia secondary to chronic kidney disease Metabolic acidosis Reports: Hypertension Reports: Depression Medication Instructions I have started citalopram for anxiety/depression Test Results Troponins have remained negative EKG with minor T-wave inversions anteriorly, no significant acute ischemic changes. Echo did not show any pericardial effusion and read by cardiology with no plans for stress test needed while hospitalized Diet Renal Diet Activity No restrictions Call your provider Fever or Chills, Shortness of breath, Chest pain Patient Instructions I believe her chest pain is likely a combination of stress and anxiety and is not related to your heart. I would like you to take a dose of citalopram and follow up with her primary care doctor for dose adjustment. This medication does not need to be renally dosed for those on hemodialysis. I think some poorly follow-up with Dr. Nicholas Franz to talk about her symptoms and how you are tolerating your antidepressant. Follow-up plan Please follow-up with your current care physician 1-2 weeks Please follow up with your physicians at [facility] when available Please continue following up with Dr. White of nephrology and Dr. Cook rheumatology as instructed Follow-up Provider: Rebekah Bailey MD Follow-up with PCP in: 1 week Jose Campbell DO February 17, 2017 11:34
[2017-02-17] MEDS ORDERED: CITA10TA9 PO (11:36)
[2017-02-17] MEDS ORDERED: HYDROmorphone 1 mg/mL Inj IVPUSH PRN (11:36)
--- NOTE | 2017-02-17 11:42 | PCM.DC.MED ---
Discharge Summary Date of Service February 17, 2017 Dates of Hospitalization Date of Hospital Admission February 16, 2017 at 17:42 Date of Discharge: February 17, 2017 Providers: Admitting Physician: Tanisha Campbell DO Primary Care Physician: Tanisha Hanson DO Attending Physician: Tanisha Campbell DO Diagnosis at Time of Discharge Diagnosis at Time of Discharge Chest pain likely noncardiac related to anxiety/stress from overall medical condition with history of underlying depression Chronic medical conditions Systemic lupus erythematosus with associated lupus nephritis and Idiopathic Thrombocytopenic Purpura h/o Hypotension secondary to lupus nephritis Anxiety depression history of suicide attempt by overdose Gallbladder stones status post cholecystectomy Breast abscess status post post removal And reportedly a history of MRSA abscess ESRD on hemodialysis h/o ivc thrombus descending aortic thrombus h/o Pulmonary embolism Cephalgia with possible cervicogenic etiology Anemia secondary to chronic kidney disease Metabolic acidosis Reports: Hypertension Reports: Depression Procedures XRay, CTs & MRIs Normal chest x-ray Cardiac Echo Impression 02/16 cardiac echo Interpretation Summary The left ventricle is normal in size, wall thickness, and systolic function without any focal wall motion abnormalities. The ejection fraction is estimated to be 60-65%. The right ventricle is normal in size, thickness and function. The left atrial size is normal. Right atrial size is normal. There is no significant valvular heart disease. The aortic root is normal size. Pericardial effusion has resolved. Brief History 26-year-old chronically ill female with multiple admissions for complications of systemic lupus erythematosus with past admissions for cytopenias, anemia, problems with opinion and lupus nephritis which was eventually led to end-stage renal disease now on hemodialysis. Patient has extensive medical history as listed below including ITP, PE, CHF and hypertension. Patient presents to the ER today due to substernal chest pain that began at 5 AM this morning and awoke her from sleep. Associated symptoms this chest pain include shortness of breath , diaphoresis and palpitations - but does note she usually has diaphoresis nausea at night which is baseline. Describes as pressure, rated 7 out of 10, no radiation and reports symptoms worse when lying down or with walking. Does report improvement in pain when sitting up. During her previous PE admission, patient states her symptoms without time were more severe than present symptoms. current infection includes a UTI for which she is taking antibiotics and is finishing her last day today. Patient sees Dr. Cook of rheumatology infrequently for her lupus and Dr. White of nephrology. Patient denies travel or sick contacts, currently not taking prednisone. Has a son at home and is independent. Has been on dialysis for 12 months now. Patient endorses a significant anxiety and stress over her current medical condition and states it all became a little too much over the last few days. Her sister about this and has just been feeling more anxiety regarding her current medical challenges. Patient uses Ambien for sleep most nights. Has used Ativan in the past and tolerated for anxiety. Hospital Course 26-year-old female with a competent medical history including lupus, lupus nephritis leading to end-stage renal disease, history of ITP, PE (full history above ) who presents with positional chest pain and T-wave inversions in anterior leads on EKG - repeat EKG is unchanged without any acute ischemic changes, troponins have remained negative. Cardiology was contacted and did not believe patient needed to have a stress test done during this admission may consider if symptoms recur given complex medical history and risk factors of end -stage renal disease. Chest pain- possibly related to anxiety/stress since chest pain began a couple days ago with negative troponins now, ACS ruled out and unlikely PE given her stable saturations on room air as well as no evidence for right heart strain on her echo. No plan for stress test during his admission, follow-up with her PCP given not have started citalopram 10 mg which does not need to be renally dosed. Patient knows her primary care physician can help titrate this medication and she has been instructed to take in the evening if she is getting sleeplessness medication and take in the morning if having trouble sleeping. -Patient instructed to follow-up with her rn progressive care and swing manager as previously directed -Continue metoprolol 100 mg ER daily - Continue home regimen omeprazole 20 mg - Monitor on telemetry without significant events - Currently saturating well off oxygen, if needed, supplemental oxygen for goal saturations greater than 93% Chronic medical conditions Lupus nephritis leading to End-stage renal disease, dialysis on Tuesday, usually sees Dr. White, continue Renvelao Lupus-stable, currently not on steroids History of constipation-when necessary stool softeners Insomnia-when necessary Ambien ordered History of depression with anxiety-consider SSRI, we will start when necessary lorazepam as noted above GERD-continue omeprazole as noted above Hypertension-continue amlodipine 10 mg daily and metoprolol 100 mg ER daily as noted above History of ITP-platelets of 51, monitor daily CBC Exam Vital Signs (Last) Date Time Temp Pulse Resp B/P Pulse Ox O2 Delivery O2 Flow Rate FiO2 02/17/17 08:00 72 02/17/17 06:00 36.9 16 118/75 99 Room Air Exam Gen.: Alert, pleasant HEENT: Normocephalic atraumatic, pupils equal round and reactive to light and accommodation, moist membranes Neck: No JVD, no lymphadenopathy Cardiac: No rubs clicks murmurs or gallops, regular rate Pulmonary: No wheezes rales or rhonchi, clear to auscultation bilaterally GI: Abdomen soft, mildly tender diffusely, no guarding or peritoneal symptoms, nondistended, normal bowel sounds Extremities: No clubbing, cyanosis, edema, pulses intact 2+ at pedis bilaterally Psychiatric: Mildly melancholic mood and normal affect Neuro: Cranial nerves II through XII grossly intact, no focal deficits Test 02/16/17 14:58 02/16/17 21:05 02/17/17 05:18 Hold Burroughs Top Tube Received (Received) Troponin T 0.010ug/L (0.0-0.011) White Blood Count 3.9th/mm3 (3.8-10.1) Red Blood Count 3.67mil/mm3 (3.90-5.20) Hemoglobin 11.9g/dL (12.0-15.6) Hematocrit 36.1% (35.0-46.0) Mean Corpuscular Volume 98.4fL (81-100) Mean Corpuscular Hemoglobin 32.4pg (27.0-35.0) Mean Corpuscular Hemoglobin Concent 33.0% (32.0-37.0) Red Cell Distribution Width 13.6% (12.3-15.4) Platelet Count 44bil/L (150-400) Neutrophils (%) (Auto) 59.0% (40-74) Lymphocytes (%) (Auto) 28.5% (14-46) Monocytes (%) (Auto) 10.2% (4-12) Eosinophils (%) (Auto) 1.5% (0-5) Basophils (%) (Auto) 0.5% (0-3) Sodium Level 142mEq/L (134-144) Potassium Level 4.5mEq/L (3.5-5.2) Chloride Level 95mEq/L (97-108) Carbon Dioxide Level 29mmol/L (18-29) Blood Urea Nitrogen 29mg/dL (6-20) Creatinine 7.56mg/dL (0.57-1.00) Estimat Glomerular Filtration Rate 9mL/min (>59) Glucose Level 87mg/dL (60-99) Calcium Level 8.8mg/dL (8.5-10.1) Magnesium Level 2.1mg/dL (1.6-2.6) Total Bilirubin 0.4mg/dL (0.0-1.2) Aspartate Amino Transf (AST/SGOT) 33U/L (0-50) Alanine Aminotransferase (ALT/SGPT) 15U/L (0-32) Alkaline Phosphatase 95U/L (25-150) Total Protein 7.0g/dL (6.4-8.4) Albumin 4.2g/dL (3.4-5.0) Triglycerides Level 163mg/dL (0-149) Cholesterol Level 141mg/dL (100-199) LDL Cholesterol, Calculated 49.400mg/dL (0-99) VLDL Cholesterol 32.600mg/dL HDL Cholesterol 59mg/dL (>39) Cholesterol/HDL Ratio 2.39 (0.0-4.4) Discharge Medications Discharge Medications Amlodipine (Amlodipine) 10 Mg Tablet 10 MG PO QAM (Reported) Citalopram (Citalopram) 10 Mg Tablet 10 MG PO DAILY Prescribed by: TANISHA CAMPBELL DO Losartan Potassium (Losartan Potassium) 100 Mg Tablet 100 MG PO QAM (Reported) Metoprolol Succinate ER (Metoprolol Succinate ER) 100 Mg Tab.er.24h 100 MG PO QAM (Reported) Omeprazole (Omeprazole) 20 Mg Capsule.dr 20 MG PO DAILY (Reported) Sevelamer Carbonate (Renvela) 800 Mg Tablet 800 MG PO TIDWM (Reported) Zolpidem (Zolpidem) 5 Mg Tablet 5 MG PO HS (Reported) Additional med instructions I have started citalopram for anxiety/depression Followup Plan Disposition: Home Follow-up plan Please follow-up with your current care physician 1-2 weeks Please follow up with your physicians at [facility] when available Please continue following up with Dr. White of nephrology and Dr. Cook rheumatology as instructed Discharge Diet: Renal Diet Discharge Activity: No restrictions Patient Instructions I believe her chest pain is likely a combination of stress and anxiety and is not related to your heart. I would like you to take a dose of citalopram and follow up with her primary care doctor for dose adjustment. This medication does not need to be renally dosed for those on hemodialysis. I think some poorly follow-up with Dr. Nicholas Franz to talk about her symptoms and how you are tolerating your antidepressant. Follow-up Provider: Rebekah Bailey MD Follow-up with PCP in: 1 week Time spent 40 minutes spent with evaluation and management including discharge this patient. Greater than 50% time spent [id number] copies to: Haroldo White DO; Rebekah Bailey MD, David DO February 17, 2017 11:42
--- NOTE | 2017-02-17 12:47 | NUR ---
Discharge Note Pt c/o 4-6/10 chest pain this morning. Pt also c/o nausea, PRN Zofran effective for this. Pt expressed understanding of all discharge instructions, medications/Rx and follow up appts. Pt discharged home with all belongings.
--- NOTE | 2017-02-17 20:41 | CONS ---
[address] [address] CONSULTATION REPORT PATIENT: MATTEO JAMES : 1990 MR#: [id number] ADMIT: 02/16/2017 JOB ID: [id number] DATE OF SERVICE: 02/16/2017 REQUESTING PHYSICIAN: Dr. Jose Jiang. REASON FOR CONSULTATION: Management of end-stage renal disease. CHIEF COMPLAINT: Chest pain. HISTORY OF PRESENT ILLNESS: This is a 26-year-old, lady with significant past medical history of SLE, end-stage renal disease, hypertension, history of pericardial effusions, history of PE who presented to the hospital with a complaint of chest pressure. The patient is well known to the renal service. The patient reported that she started having substernal chest pain two days prior to the admission. The pain got worse while taking a deep breath. The pain is radiating to the throat. She reported that it feels like something stuck in her throat. The patient reported these symptoms to Dr. White and she was informed to come to the hospital for further investigation. The chest x-ray did not show any acute abnormalities. Echocardiogram was done last night and showed no pericardial effusion, ejection fraction was 60% to 65%. There was no significant valvular heart disease. Right ventricle is normal in size and function. Her blood pressure has been stable throughout the night. She has good oxygenation with 99% pulse ox on room air. PAST MEDICAL HISTORY: 1. SLE. 2. Lupus nephritis 3. End-stage renal disease, on hemodialysis every Tuesday, Tuesday, and Tuesday. 4. Chronic thrombocytopenia. 5. History of pulmonary embolism. 6. History of IVC thrombus and ascending aortic thrombus. 7. History of MRSA infections. 8. Breast abscess status post removal. 9. Renal osteodystrophy with poor compliance with phosphate binders. 10. Anemia of chronic kidney disease. SURGICAL HISTORY: 1. Status post right AV graft placement. 2. Status post tunneled catheter placement. 3. Status post cholecystectomy. 4. Status post breast abscess drainage. FAMILY HISTORY: Positive for coronary artery disease and hypertension in the family. SOCIAL HISTORY: The patient is a former smoker. Denies current use of alcohol, tobacco, illicit drugs. ALLERGIES: 1. ZOLPIDEM. 2. PRAZOSIN. 3. IVORY SOAP. REVIEW OF SYSTEMS: Fourteen point review of system was performed. PHYSICAL EXAMINATION: Vitals: Temperature 36.9, pulse 57, respiratory rate 16, blood pressure 118/75, O2 sat 99% on room air. General appearance: Awake, alert, oriented x3. No acute distress. HEENT: No pallor. No jaundice. No JVD. No lymphadenopathy. No thyroid enlargement. Heart: Regular rhythm. Normal S1, S2. No murmurs, rubs, or gallops. Lungs: Clear to auscultation bilaterally. Abdomen is soft, active bowel sounds. Nontender. Nondistended. No hepatosplenomegaly. Extremities: No edema, cyanosis or clubbing of the fingers. Right AV graft with good thrill. LABORATORY STUDIES: WBC 3.9, hemoglobin 11.9, platelets 44. Sodium 142, potassium 4.5, chloride 95, bicarb 29, BUN 29, creatinine 7.56. ASSESSMENT: 1. Atypical chest pain. Repeat echocardiogram is within normal limits. No RV strain. Chest x-ray showed no acute infiltrates. The patient has good oxygenation. I recommend to continue observation. If symptoms persist, will consider CT with contrast to rule out pulmonary embolus. 2. End-stage renal disease, on hemodialysis every Tuesday, Tuesday, and Tuesday. No urgent dialysis indicated at this moment. 3. Systemic lupus erythematosus complicated by lupus nephritis, idiopathic thrombocytopenia, and thrombosis. 4. Hypertension with hypertensive nephrosclerosis. Per renal standpoint, the patient can be discharged home. We will see her at the dialysis unit. The patient will follow up with her pipe installer. Thank you for the consultation. We will monitor along with you. PRASAD
== END 2017-02-17 12:34 | disposition home or self-care (01) ==
LOC: SED 14:30 → MOC 17:42
PROVIDERS: ADMIT Internal Medicine; ATTEND Internal Medicine
DX: R07.89 Other chest pain (principal); F41.8 Other specified anxiety disorders; F43.0 Acute stress reaction; M32.14 Glomerular disease in systemic lupus erythematosus; I12.0 Hypertensive chronic kidney disease with stage 5 chronic kidney disease or end stage renal disease; N18.6 End stage renal disease; D63.1 Anemia in chronic kidney disease; D69.3 Immune thrombocytopenic purpura; Z99.2 Dependence on renal dialysis; Z86.711 Personal history of pulmonary embolism; Z86.718 Personal history of other venous thrombosis and embolism; Z87.891 Personal history of nicotine dependence; G47.00 Insomnia, unspecified; K21.9 Gastro-esophageal reflux disease without esophagitis; Z86.14 Personal history of Methicillin resistant Staphylococcus aureus infection; N25.0 Renal osteodystrophy
CPT/HCPCS: 36415; 71010; 80053; 80061; 83735; 84484; 85025; 93005; 96374; 96375; 96376; 99285; C8929; G0378; J1170; J1644; J2060; J2270; J2405

== ENCOUNTER 2017-03-24 12:55 | Day surgery (SDC) | payer MEDICARE, MEDICAID ==
[~2017-03-24] VITALS: Ht 152.4 cm; Wt 45.0 kg
[~2017-03-24 12:55] MED LIST changes: +CITA10TA9 PO; -CLON1PAT14 TD; +LOSA100T29 PO; -LOSA100T3 PO; +Lactated Ringer's 1,000 ML IV ONE; -MYCO360T3 PO; +OMEP20CA11 PO; -PRE20 PO; -WARF5TAB7 PO; +ZOLP5TAB6 PO
[2017-03-24] MEDS ORDERED: Propofol 10 mg/mL 20 mL Inj ONE (12:56)
[2017-03-24 13:35] VITALS: BP 118/80; PULSE 68; RESP 16; O2SAT 100
[2017-03-24] MEDS ORDERED: 0.9% Sodium Chloride 1,000 ML IV ONE ×2 (14:31)
[2017-03-24 14:58] VITALS: BP 98/56; PULSE 67; RESP 16; O2SAT 97
[2017-03-24 15:12] VITALS: BP 100/58; PULSE 60; RESP 16; O2SAT 96
[2017-03-24 15:25] VITALS: BP 107/62; PULSE 56; RESP 16; O2SAT 96
--- NOTE | 2017-03-24 15:25 | ENDO ---
[address] [address] ENDOSCOPY PROCEDURE PATIENT: MATTEO JAMES : 1990 MR#: [id number] ADMIT: 03/24/2017 JOB ID: [id number] PROCEDURE: Esophagogastroduodenoscopy (EGD). INDICATION: Intractable vomiting. ANESTHESIA: Please see anesthesia report for details regarding ASA classification, Mallampati score, and medications. INSTRUMENT USED: GIF H 180 J. PROCEDURE DETAILS: After informed consent was obtained, the patient was brought into the GI suite, where she was placed on oxygen via nasal cannula and monitored with continuous pulse oximeter, telemetry, and blood pressure monitoring. A time-out was performed, then she was placed in the left lateral decubitus position and medications were administered for sedation. A bite block was placed. The standard esophagogastroduodenoscopy scope was inserted through the bite block and advanced under direct visualization to the second portion of the duodenum without difficulty. FINDINGS: 1. Normal appearing duodenal bulb, first and second portion. Multiple random biopsies were obtained. 2. Normal appearing pylorus. 3. In the antrum and body of stomach there was some scattered old blood, a minimal amount. There was also erythema noted in the antrum and body of the stomach. Multiple random biopsies were obtained. 4. Retroflexed views in the gastric body revealed a normal-appearing cardia and fundus. 5. The GE junction was regular at 35 cm. 6. Normal-appearing esophagus. IMPRESSION: Gastritis with evidence of a small amount of old blood in the stomach. No active bleeding seen and no etiology for bleeding was noted. RECOMMENDATIONS: 1. PPI daily. 2. Proceed to colonoscopy. PROCEDURE PERFORMED: Colonoscopy. INDICATION: Rectal bleeding. ANESTHESIA: Please see above for ASA classification, Mallampati score, and medications. INSTRUMENT USED: PCF H 180 AL PREPARATION QUALITY: Good. PROCEDURE DETAILS: After completion of the EGD exam, the patient was turned and then a digital rectal exam was performed, which was unremarkable. The colonoscope was then inserted into the rectum and advanced under direct visualization to the terminal ileum, which was identified by the presence of the ileocecal valve and villous appearing mucosa of the terminal ileum. Once the terminal ileum was reached, the colonoscope was withdrawn back into the rectum as the mucosa and lumen were examined. In the rectum, retroflexion was performed. Following retroflexion, the remaining air in the rectum was suctioned and the procedure was completed. FINDINGS: Normal exam from rectum to terminal ileum. IMPRESSION: Normal colonoscopy. RECOMMENDATIONS: 1. Fiber rich diet. 2. Suspect rectal bleeding from benign anorectal disease. COMPLICATIONS: None. ESTIMATED BLOOD LOSS: Zero. CC: Dr. Garcia
--- NOTE | 2017-03-24 15:26 | PCM.HPANE ---
Patient Data Surgeon Admitting Provider: Attending Provider:Colin Bailey MD Primary Care Physician:Jose Hanson DO Other Provider:[facility] Reason for Visit Blood In Stool, Intractable Vomiting Ht/WT & BMI Body Mass Index Allergies Coded Allergies: nitrofurantoin (Verified Allergy, Unknown, 03/24/17) prazosin (Verified Adverse Reaction, Intermediate, anxiety, 09/16/16) Uncoded Allergies: IVORY SOAP (Allergy, Intermediate, 02/16/16) Past Anesthesia History Anesthesia History: Denies:: Abnormal Airway, Anesthesia Reactions, Difficult Intubation, Fam Anesthesia Reaction, Fam Malignant Hypertherm, Malignant Hyperthermia Diabetes History Hx Diabetes?: No MRSA MRSA: Yes (2011) Medications Active Scripts Citalopram 10 Mg Snubyv49 Mg PO DAILY #30 TABLET Ref 0 Prov:Jose Campbell DO 02/17/17 Reported Medications Zolpidem 5 Mg Tablet5 Mg PO HS 02/16/17 Omeprazole 20 Mg Capsule.dr20 Mg PO DAILY 02/16/17 Losartan Potassium 100 Mg Lwmiof759 Mg PO QAM 02/16/17 Metoprolol Succinate ER 100 Mg Tab.er.32a286 Mg PO QAM 09/15/16 Sevelamer Carbonate (Renvela)800 Mg Agnnwk192 Mg PO TIDWM 03/17/16 Amlodipine 10 Mg Upsewm78 Mg PO QAM #30 02/16/16 History History of ENT Problems?: Yes HEENT History: Denies:: Abnormal Airway Cataracts Difficult Intubation Dysphagia Hearing Problem Sinus Problem Denture Type: None Teeth Condition: Within Normal Limits Hx of Heart Problems?: No Cardiovascular History: Positive for:: Chest Pain Congestive Heart Failure Edema Hypertension Denies:: AICD Atrial Fibrillation Cardiac Surgery Heart Murmur Irregular Heartbeat Pacemaker Thrombophlebitis Valvular Heart Disease Hx of Respiratory Problem?: Yes Respiratory History: Positive for:: Dyspnea Pneumonia Denies:: Asthma COPD Chest Surgery Cough Emphysema Hemoptysis Tuberculosis Hx Neurologic Problems?: Yes Neurological History: Positive for:: Dizziness Headaches Seizures Denies:: Alzheimer's Disease CVA Dementia Parkinson's Disease Hx of GI Problems?: Yes Hx of Problems?: Yes Genitourinary History: Positive for:: HX of Hemodialysis (Tuesday, and Tuesday. ) Kidney Stones Urinary Tract Infection HX of Peritoneal Dialysis: No Female Hx: Positive for:: Problems with Breasts? (hx of breast abscess s/p I&D ) Denies:: Currently Endometriosis Pelvic Inflammatory Skin History: Denies:: History Skin Disorders? Hx Musculoskeletal Problems?: Yes Musculoskeletal History: Positive for:: Systemic Lupus (Dx 18 years of age) Denies:: Back Injury Joint Replacement Musculoskeletal Trauma Hx of Psycho/Social Problems?: Yes Psycho Social History: Positive for:: Anxiety Hx Depression Suicide Attempt (2009, no current thoughts of suicide.) Denies:: Bipolar Disorder Hx Surgeries?: Yes Hx Any Other Health Problems?: Yes Other History: Positive for:: Hospitalization Denies:: Cancer Endocrine Disease Thyroid Disease History Blood Transfusions: Positive for:: Blood Transfusions Denies:: Blood Transfuse Reaction Hx Diabetes: No Hx Alcohol Use: NoHx Substance Use: Yes (smokes marijuana daily) Smoking Status: Former Smoker Have You Smoked inLast 12 mo: Yes (marijuana) Stop/Bang Risk Assessment Category Category 1A: Patient has history of documented sleep apnea, and HAS NOT received any narcotic, sedative or anesthesia administration during this stay. Category 1B: Patient has history of documented sleep apnea, and HAS received any narcotic , sedative or anesthesia administration during this stay Category 2: Patient has SUSPECTED Obstructive Sleep Apnea, and HAS received any narcotic , sedative or anesthesia administration during this stay. Category 3: Patient has SUSPECTED Obstructive Sleep Apnea and HAS NOT received narcotic, sedative or anesthesia administration during this stay. Category 4: Outpatient in Procedural Areas with known sleep apnea or who screen positive for High Risk via the STOP/BANG questionnaire. Exam Exam General Appearance: Alert, Oriented X3, Cooperative, No Acute Distress HEENT/AIRWAY: MP 2 Lungs: Clear to Auscultation Heart: Exam Unremarkable Plan Impression Patient chart reviewed, patient interviewed and anesthestic plan with risks, benefits, and alternatives discussed, and informed consent obtained. ASA Physical Status: ASA3 Severe Disease Anesthetic Plan: MAC Bene/Risks/Altern/Consents: Yes HP Complete Prior to Induction: Yes Marcial Doyle MD Mar 24, 2017 09:32
--- NOTE | 2017-03-28 14:16 | PATH ---
SURGICAL PATHOLOGY Attending Physician:Adonis Saul CASE STATUS: Signed Out PATIENT NAME: MATTEO JAMES PID: [id number] : 1990 DATE COLLECTED:03/24/2017 00:00 SPECIMEN: 1: Gastric, Biopsy 2: Duodenum, Biopsy CLINICAL HISTORY: 1). GASTRIC BIOPSY 2). DUODENAL BIOPSY FINAL DIAGNOSIS: 1.GASTRIC BIOPSY: GASTRIC CORPUS WITH MILD CHRONIC GASTRITIS. Negative for Helicobacter organisms. Negative for intestinal metaplasia. No evidence of dysplasia or malignancy. 2.DUODENUM BIOPSY: NO DIAGNOSTIC ABNORMALITY. Negative for intraepithelial lymphocytosis, villous blunting, or other features of celiac sprue. Negative for Giardia organisms, dysplasia and malignancy. ICD10 K29.70 GROSS DESCRIPTION: The specimens are received in formalin, labeled with the patient's name and sublabeled as the following: (1) gastric BXs; (2) duodenal BXs. (1) The specimen consists of multiple fragments of lopez-white, glistening, semi-translucent tissue (0.4 x 0.3 x 0.1 cm in aggregate). Section code: (1A) tissue. Specimen entirely submitted. (2) The specimen consists of multiple fragments of lopez-white, glistening, rubbery, semi-translucent tissue (0.5 x 0.2 x 0.2 cm in aggregate). Section code: (2A) tissue. Specimen entirely submitted. ([id number]) MICRO DESCRIPTION: See diagnosis. ICD-9 CODES: CPT CODES: 1: 90899 2: 70138 Electronically Signed Out Raoul Thao MD [facility] [address], [place] [address] Technical component performed at [facility], [facility] [address], [place], [address]
== END 2017-03-24 23:59 | disposition home or self-care (01) ==
LOC: END 12:55
PROVIDERS: ATTEND Internal Medicine Gastroenterology
DX: K29.51 Unspecified chronic gastritis with bleeding (principal); K92.1 Melena; R11.10 Vomiting, unspecified; I12.0 Hypertensive chronic kidney disease with stage 5 chronic kidney disease or end stage renal disease; N18.6 End stage renal disease; I50.9 Heart failure, unspecified; D63.1 Anemia in chronic kidney disease; K21.9 Gastro-esophageal reflux disease without esophagitis; R60.0 Localized edema; F41.8 Other specified anxiety disorders; M32.14 Glomerular disease in systemic lupus erythematosus; F12.90 Cannabis use, unspecified, uncomplicated; Z99.2 Dependence on renal dialysis; Z86.14 Personal history of Methicillin resistant Staphylococcus aureus infection; Z87.442 Personal history of urinary calculi; Z87.891 Personal history of nicotine dependence
CPT/HCPCS: 43239; 45378; 88305; J7030

== ENCOUNTER 2017-04-26 02:37 | Inpatient (IN) | payer MEDICARE, MEDICAID ==
[2017-04-26] VITALS (8 sets, daily range): BP systolic 107–164; BP diastolic 68–108; PULSE 66–104; RESP 14–20; O2SAT 96–100
[~2017-04-26] VITALS: Ht 152.4 cm; Wt 46.3 kg
[~2017-04-26 02:37] MED LIST changes: -Lactated Ringer's 1,000 ML IV ONE
--- NOTE | 2017-04-26 02:55 | ED.REPORT ---
HPI-General Illness Date of Service Apr 26, 2017 ED Provider: Vinay Cuenca MD Pt is a 26 year old female with a hx of kidney failure on dialysis, Lupus and HTN presenting to the ED complaining of a fever of 102 onset yesterday. Associated symptoms include right flank and abdominal pain, headache, vomiting, and shaking chills. Denies any dysuria, or productive cough. She has been following up with Dr. Oviedo for her Lupus medication. But is not currently on immune modifying agents be on intermittent prednisone. She has been chronically noncompliant with her meds. She had dialysis yesterday with no issues. Nursing Notes Stated Complaint: FEVER,VOMITING,ABDOMINAL PAIN, DIALYSIS PATIENT Chief Complaint: General Complaint Nursing Notes Reviewed: Yes Allergies: Coded Allergies: nitrofurantoin (Verified Allergy, Unknown, 04/26/17) prazosin (Verified Adverse Reaction, Intermediate, anxiety, 04/26/17) Uncoded Allergies: IVORY SOAP (Allergy, Intermediate, 02/16/16) Scheduled Amlodipine (Amlodipine) 10 Mg Tablet 10 MG PO QAM Citalopram (Citalopram) 10 Mg Tablet 10 MG PO DAILY Losartan Potassium (Losartan Potassium) 100 Mg Tablet 100 MG PO QAM Metoprolol Succinate ER (Metoprolol Succinate ER) 100 Mg Tab.er.24h 100 MG PO QAM Omeprazole (Omeprazole) 20 Mg Capsule.dr 20 MG PO DAILY Sevelamer Carbonate (Renvela) 800 Mg Tablet 800 MG PO QID Zolpidem (Zolpidem) 5 Mg Tablet 5 MG PO HS General Time Seen by MD: 02:51 Chief Complaint Fever Hx Obtained From: Patient Arrived By: Walk-in Sudden in Onset?: No Onset Occurred: Yesterday Symptom Duration: Since onset Quality: Painful Severity: Current: Mild Severity: Maximum: Moderate Recent Healthcare: No recent hospitalization, Recent doctor visit Similar Sx Previous: No Past Medical History Past Medical History Notes: PCP: Dr. Hanson Cdl Truck Driver: Dr. Cook Programming Director: Dr. 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 Endoscopy. Colonoscopy. Portocath. Fistula. Reports: Cholecystectomy Family History Reviewed, not relevant. Smoking History Former Smoker Social History Alcohol Use: Denies alcohol use Drug Use: THC Other Social History: Local resident Ambulatory Status Independent Review of Systems Full Review of Systems Constitutional: Reports: Chills, Fever (102) Respiratory: Denies: Non-productive cough GI: Reports: Abdominal pain, Nausea, Vomiting Female: Denies: Dysuria Neurologic: Reports: Headache Complete sys rev & neg: except as marked. Physical Exam Vital Signs Vital Signs Date Time Temp Pulse Resp B/P Pulse Ox O2 Delivery O2 Flow Rate FiO2 04/26/17 06:21 36.4 69 16 139/89 96 Room Air 04/26/17 05:11 37.9 84 14 127/85 96 Room Air 04/26/17 02:43 37.8 104 18 113/82 98 Room Air Initial VS: Reviewed General/Constitutional: Well-developed, Well-nourished Head / Eyes: Atraumatic, Normocephalic, PERRL ENT: Mucous membranes moist, Conjunctiva normal, No scleral icterus Neck: Supple, Non-tender, Full range of motion Cardiovascular: Regular rate & rhythm, Heart sounds normal, Intact distal pulses Abdomen / GI: Soft, Non-tender, No guarding, No rebound, No distention Extremities: Vascular intact, Neuro intact, No swelling, No tenderness Neurologic: Alert, Oriented, Nonfocal Psychiatric: Mood/affect normal, Behavior normal, Normal thought content Respiratory / Chest: Atraumatic, No respiratory distress Lungs crackling right base Skin: Dry, Intact Cool Interpretation & Diagnostics Lab Results Interpretation Result Diagram: 04/26/17 0330 04/26/17 0330 Test 04/26/17 03:30 White Blood Count 6.2th/mm3 (3.8-10.1) Red Blood Count 3.42mil/mm3 (3.90-5.20) Hemoglobin 11.0g/dL (12.0-15.6) Hematocrit 33.2% (35.0-46.0) Mean Corpuscular Volume 97.1fL (81-100) Mean Corpuscular Hemoglobin 32.2pg (27.0-35.0) Mean Corpuscular Hemoglobin Concent 33.1% (32.0-37.0) Red Cell Distribution Width 13.3% (12.3-15.4) Platelet Count 44bil/L (150-400) Neutrophils (%) (Auto) 71.1% (40-74) Lymphocytes (%) (Auto) 18.7% (14-46) Monocytes (%) (Auto) 8.9% (4-12) Eosinophils (%) (Auto) 0.2% (0-5) Basophils (%) (Auto) 0.5% (0-3) Hematology Comments Rbc Urine Color Straw (YELLOW) Urine Appearance Hazy (CLEAR,HAZY) Urine pH 8.5 (5.0-8.0) Urine Specific Lynden 1.009 (1.003-1.035) Urine Protein 100mg/dL (NEG,TRACE) Urine Glucose (UA) 100mg/dL (NEGATIVE) Urine Ketones Negativemg/dL (NEGATIVE) Urine Occult Blood Small (NEGATIVE) Urine Nitrite Negative (NEGATIVE) Urine Bilirubin Negative (NEGATIVE) Urine Urobilinogen Normalmg/dL (NORMAL) Urine Leukocyte Esterase Negative (NEGATIVE) Urine RBC 3-10/hpf (0-2) Urine WBC 0-5/hpf (0-5) Urine Epithelial Cells Few/hpf (NONE-MOD) Urine Crystals None seen (NONE SEEN) Urine Bacteria Few/hpf (NONE-FEW) Urine Hyaline Casts None/lpf (NONE) Urine Granular Casts None seen (NONE SEEN) Urine Waxy Casts None seen (NONE SEEN) Urine Red Blood Cell Casts None seen (NONE SEEN) Urine White Blood Cell Casts None seen (NONE SEEN) Urine Mucus None seen (None Seen) Urine Trichomonas None seen (NONE SEEN) Urine Yeast None (NONE SEEN) Urinalysis Comment None Urine Culture Reflexed Not indicated Hold Urine Received (Received) Sodium Level 142mEq/L (134-144) Potassium Level 4.5mEq/L (3.5-5.2) Chloride Level 98mEq/L (97-108) Carbon Dioxide Level 25mmol/L (18-29) Blood Urea Nitrogen 27mg/dL (6-20) Creatinine 5.94mg/dL (0.57-1.00) Estimat Glomerular Filtration Rate 12mL/min (>59) Glucose Level 93mg/dL (60-99) Calcium Level 7.5mg/dL (8.5-10.1) Magnesium Level 1.6mg/dL (1.6-2.6) Total Bilirubin 0.3mg/dL (0.0-1.2) Aspartate Amino Transf (AST/SGOT) 19U/L (0-50) Alanine Aminotransferase (ALT/SGPT) 17U/L (0-32) Alkaline Phosphatase 109U/L (25-150) Total Protein 7.0g/dL (6.4-8.4) Albumin 4.0g/dL (3.4-5.0) Lipase 73U/L (13-60) Hold Burroughs Top Tube Received (Received) X-Ray Chest Interpretation Chest Xray Interpretation: Negative. View: Portable, 1 view Interpretation / Wet Read by: Wet read ED physician Re-Eval/Medical Decision Med Decision/Clinical Course 26-year-old female with SLE presents with shaking chills and fever at home. Source of this fever is not clear. HEENT is unremarkable with clear ears and throat. There is no adenopathy. The lung initially sounded like rales in right lower lobe, but subsequent reexam shows no abnormal sounds. X-ray was basically negative. Her lab are basically noncontributory with benign CBC, negative urine, and the negative chest x-ray as noted. She remains a immune suppressed patient with documented fever and riders, suggesting possible bacteremia. Fever without chills previously had just been related to her lupus apparently, but her current symptoms remain concerning. Admitted for observation. Antibiotics deferred pending identification of an infectious source. Time of Eval: 05:38 Patient Status: Condition improved Re-Evaluation/Progress Note: Discussed plan for admission. Pt understands and agrees with plan. Consultation : Referral / Consult Name: Rachel Fragoso DO Consulted With: Hospitalist Advertising Clerk: Will see patient, Agrees with plan, Accepts admit Counseled Regarding: Diagnosis, Lab results, Need for follow-up, When/why to return to ED Discharge & Departure Primary Impression: Fever and chills Additional Impressions: ESRD on dialysis Lupus Right flank pain Disposition: ADMITTED TO HOSPITAL Discharge Condition All VS Reviewed: Yes Condition: Stable Referrals: Jose Hanson DO (PCP) Scribe Attestation Portions of this note were transcribed by Cha Kilgore. I, Dr. Cuenca personally performed the history, physical exam and medical decision-making; I reviewed and confirmed the accuracy of the information in the transcribed note. Signed by: Seda Heller, 04/26/2017 at 0600. copies to: Jose Hanson DO Roberts, Christopher W MD Apr 26, 2017 02:54 CHA KILGORE Apr 26, 2017 03:00
[2017-04-26 03:44] LABS: EOSINOPHILS % (AUTO) 0.2 % (0-5)
[2017-04-26 03:51] LABS: BASOPHILS % (AUTO) 0.5 % (0-3); MONOCYTES % (AUTO) 8.9 % (4-12); Mean Corpuscular Hemoglobin 32.2 pg (27.0-35.0); Mean Corpuscular Volume 97.1 fL (81-100); NEUTROPHILS % (AUTO) 71.1 % (40-74); Platelet Count 44 bil/L (150-400)
[2017-04-26 04:02] LABS: Magnesium 1.6 mg/dL (1.6-2.6)
[2017-04-26 04:34] LABS: APPEARANCE,URINE HAZY (CLEAR,HAZY); COLOR,URINE STRAW (YELLOW); OCCULT BLOOD,URINE SMALL (NEGATIVE); PH,URINE 8.5 (5.0-8.0); UROBILINOGEN,URINE NORMAL (NORMAL)
[2017-04-26] MEDS ORDERED: Ketorolac 15 mg/mL Inj IVPUSH ONE (04:45)
[2017-04-26] MEDS: HYDROmorphone 1 mg/mL Inj IVPUSH PRN ×2 (04:55→06:12)
[2017-04-26] MEDS ORDERED: Ondansetron 2 mg/mL 2 mL Inj IVPUSH ONE (05:05)
[2017-04-26] MEDS ORDERED: Alum-Mag Hydrox-Simeth 30 mL Suspension PO PRN (07:35)
[2017-04-26] MEDS ORDERED: Polyethylene Glycol (PEG) 17 Gm Powder PO PRN (07:35)
--- NOTE | 2017-04-26 07:59 | DRSVH ---
PROCEDURE: CT ABDOMEN AND PELVIS WITHOUT CONTRAST ([id number]) INDICATIONS: flank pain fever esrd TECHNIQUE: Noncontrast 5 mm thick sections acquired from the diaphragms to the symphysis. 5 mm coronal and sagi ttal reformats were then performed. For radiation dose reduction, the following was used: automated exposure control, adjustment of mA and/or kV according to patient size. COMPARISON: None. FINDINGS: Image quality: Good ABDOMEN: Lung bases: Lung bases are clear. Heart size is normal. Solid organs: Liver and spleen are normal in size. Gallbladder has been removed. Pancreas is sandeep l in contours. No adrenal nodules. Kidneys are normal in size. Left kidney is normal in appearance without hydronephrosis, mass or stone. The right kidney shows prominent stranding surrounding it and slight prominence of the collecting system. No stones are seen in the kidney or ureter to the bladder . Peritoneum and bowel: Unenhanced bowel loops demonstrate normal wall thickness and caliber. No free air. There is minimal fluid in the cul-de-sac consistent with physiologic fluid in a patient of 26 y ears old. The appendix is normal. Nodes and vessels: No retroperitoneal or mesenteric adenopathy by size criteria. Aorta and inferior vena cava are normal in caliber. Miscellaneous: No ventral hernias. PELVIS: Genitourinary: Bladder wall thickness is normal. There is an IUD centered in the bladder. No enlarg ement of either ovary is seen. Miscellaneous: No inguinal hernias or adenopathy. Bones: No suspicious bony lesions. No vertebral body compression fractures. IMPRESSION: Prominent stranding around the right kidney without loculated fluid. No abscess is seen. The appeara nce would be inflammation of the right kidney probable pyelonephritis. Slight prominence of the colle cting system likely atony from inflammation rather than obstruction. No stones are seen in either kid tricia or ureter. Dictated by: Cristian Estes M.D. on 04/26/2017 at 7:57 on 04/26/2017 at 7:50 case was discussed with Dr. Cuenca at the time of this dictation. Approved by: Cristian Estes M.D. on 04/26/2017 at 7:57
[2017-04-26] MEDS ORDERED: cefTRIAXone Inj 2,000 MG in Dextrose 5% Minibag Plus 50 ML IV ONE (08:00)
[2017-04-26] MEDS ORDERED: CINA30TA PO (09:01)
[2017-04-26] MEDS ORDERED: LOSA50TA37 PO (09:02)
[2017-04-26] MEDS: Ondansetron 2 mg/mL 2 mL Inj IVPUSH PRN (09:29)
[2017-04-26] MEDS: MeTOProlol XL 50 mg ER24 Tablet PO SCH (09:30)
[2017-04-26] MEDS: Pantoprazole 20 mg ER24 Tablet PO SCH (09:30)
--- NOTE | 2017-04-26 09:30 | NUR ---
Arrived on Unit Patient arrived on floor from ED in stable condition. Patient ambulated from W/C to bed. VSS. PO medications given. Patient reported pain and nausea. Refused oral pain medications and requested IV Dilaudid. 8mg ondansetron given. Patient orientated to call light, bed, menu and visiting hours. Call light and tray table within reach. Will continue to monitor patient hourly.
--- NOTE | 2017-04-26 09:39 | DRSVH ---
PROCEDURE: X-RAY CHEST, TWO VIEWS ([id number]) INDICATIONS: lupus, fever, cough TECHNIQUE: 2 views of the chest were acquired. COMPARISON: [facility], CR, XR CHEST 1VW (PORTABLE), 02/16/2017, 14:44. [facility], CR, XR CHEST 1VW (PORTABLE), 02/26/2016, 13:23. FINDINGS: Surgical changes and devices: None. Lungs and pleura: No pleural effusions or pneumothorax. Lungs are clear. Mediastinum: Mediastinal contours are normal. Heart size is normal. Bones and chest wall: No suspicious bony abnormalities. Soft tissues appear unremarkable. IMPRESSION: Normal. No source of cough is found. Dictated by: Jose Zuleta M.D. on 04/26/2017 at 9:37 Approved by: Jose Zuleta M.D. on 04/26/2017 at 9:38
--- NOTE | 2017-04-26 13:38 | CONS ---
[address] [address] CONSULTATION REPORT PATIENT: MATTEO JAMES : 1990 MR#: [id number] ADMIT: 04/26/2017 JOB ID: [id number] DATE OF SERVICE: 04/26/2017 REQUESTING PHYSICIAN: Staci Burnett MD. REASON FOR CONSULTATION: Management of end-stage renal disease. CHIEF COMPLAINT: Right flank pain and fever. PRESENT ILLNESS: This is a 26-year-old lady with significant past medical history of end-stage renal disease, on hemodialysis every Tuesday, Tuesday, and Tuesday, lupus, hypertension, renal osteodystrophy, anemia of chronic kidney disease, thrombosis an ITP, who came to the hospital with a complaint of acute onset right flank pain. The patient reported that she had a low-grade temperature last week that was thought to be the lupus flare. She was started on tapering dose prednisone. She has been on it for a week, also. Yesterday, she developed acute onset of right flank pain radiating down to the right lower abdomen. Symptom was associated with a temperature of 102. She reports having nausea, vomiting, and chills. The patient produces minimal amount of urine. She reports no urinary symptoms. She came to the hospital for further investigation. Her initial vitals in the emergency department showed temperature of 37.8, pulse 104, respiratory of 18, blood pressure 113/82. Her initial blood work showed hemoglobin of 11, WBC of 6.2. CAT scan of the abdomen and pelvis showed prominent stranding around the right kidney without loculated fluid, suggesting of probable pyelonephritis. Chest x-ray did not show any infiltrates. UA showed no significant pyuria. She received 2 g of ceftriaxone this morning. Her last dialysis was performed yesterday. Her current blood work did not show any hyperkalemia or metabolic acidosis. She reports no history of chest pain or shortness of breath. PAST MEDICAL HISTORY: 1. 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 2. End-stage renal disease, on hemodialysis every Tuesday, Tuesday, and Tuesday. 3. Chronic thrombocytopenia. 4. History of pulmonary embolism. 5. History of IVC thrombus and ascending aortic thrombus. 6. History of MRSA infections. 7. Breast abscess, status post drainage. 8. Renal osteodystrophy with poor compliance with phosphate binders. 9. Anemia of chronic kidney disease. PAST SURGICAL HISTORY: 1. Status post right AV graft placement. 2. Status post tunneled catheter placement. 3. Status post cholecystectomy. 4. Status post breast abscess drainage. FAMILY HISTORY: Positive for coronary artery disease and hypertension in the family. SOCIAL HISTORY: He is a former smoker. He often uses marijuana. He denies current use of alcohol, tobacco, or other illicit drugs. ALLERGIES: 1. ZOLPIDEM. 2. PRAZOSIN. 3. IVORY SOAP. REVIEW OF SYSTEMS: A 14-point review of system was performed. PHYSICAL EXAMINATION: Vitals: Temperature 36.5, pulse 67, respiratory 20, blood pressure 164/108. General appearance: Awake, alert, oriented x3. No acute distress. HEENT: No pallor. No jaundice. No JVD. No lymphadenopathy. No thyroid enlargement. Heart: Regular rhythm. Normal S1, S2. No murmurs, rubs, or gallops. Lungs: Clear to auscultation bilaterally. No wheezing. No rhonchi. No rales. Abdomen: Soft, nontender, nondistended. No hepatosplenomegaly. Positive for right CVA tenderness. Extremities: No edema, cyanosis or clubbing of fingers. LABORATORY: WBC 6.2, hemoglobin 11, platelets 44. Sodium 142, potassium 4.5, chloride 98, bicarb 25, BUN 27, creatinine 5.94. UA: Specific gravity 1.009. Protein 100, 3-10 RBCs, 0-5 WBC, few bacteria. ASSESSMENT: 1. Acute febrile illness. The etiology is infectious process versus autoimmune disease. CAT scan showed probable right acute pyelonephritis. However, her urine is quite clean. No evidence of pyuria, which is not a classic presentation for acute pyelonephritis. Nonetheless, I would recommend to continue IV antibiotics until we receive finalized culture. I will check complement 3, complement 4, ESR, CRP, and anti-double stranded DNA titer to assess the lupus activity. 2. Right flank pain. Rule out acute pyelonephritis. Given the fact that she had history of thrombosis, we need to rule out renal vein thrombosis. I will order renal artery and vein duplex. 3. End-stage renal disease, on hemodialysis every Tuesday, Tuesday, and Tuesday. No urgent dialysis indicated today. 4. Hypertension. 5. Chronic thrombocytopenia. 6. History of IVC thrombosis, ascending aortic thrombus and pulmonary embolism. 7. Renal osteodystrophy. 8. Anemia of chronic kidney disease. PLAN: 1. We will resume dialysis in the morning. 2. Continue IV antibiotics. 3. Pending finalized culture. 4. Will order serologies to assess for lupus activity. 5. We will order renal vein duplex. 6. Resume phosphate binders. 7. Continue her antihypertensive medications. 8. Continue Sensipar.
--- NOTE | 2017-04-26 15:25 | DRSVH ---
PROCEDURE: US RENAL SONOGRAM INDICATIONS: r/o right renal vein thrombosis TECHNIQUE: Real-time scanning was performed of the kidneys and bladder, with image documentation. COMPARISON: None. FINDINGS: Kidneys: Kidneys are mildly reduced in size. Right kidney measures 7.9 cm long; left kidney measure s 8.0 cm long. Right renal cortical thickness is 0.9 cm; left renal cortical thickness is 1.1 cm. R enal cortical echotexture is normal. No hydronephrosis or nephrolithiasis. No suspicious solid mass lesions. No renal vein thrombosis is suspected. Quality of visualization of the left renal vein is somewhat limited due to overlying bowel gas. Bladder: Pre-void bladder volume is less than 30 cc mL. Miscellaneous: No free pelvic fluid. IMPRESSION: No sign of hydronephrosis or nephrolithiasis, or renal vein thrombosis. Relatively small kidneys bilaterally as discussed above. Dictated by: Jose Zuleta M.D. on 04/26/2017 at 15:21 Approved by: Jose Zuleta M.D. on 04/26/2017 at 15:23
--- NOTE | 2017-04-27 00:14 | PCM.HPMED ---
Subjective Date of Service Apr 26, 2017 Primary Provider: Admitting Physician: Staci Burnett DO Primary Care Physician: Haroldo White DO Attending Physician: Staci Burnett DO Admit Status: From the Emergency Department Chief Complaint: Right flank pain History of Present Illness: 26-year-old female with past medical history of lupus nephritis, IVC thrombus, descending aortic thrombus, almond embolism, anemia is presenting with right flank pain that has been ongoing since yesterday. She is endorsing fevers that are more than normal because of her lupus, chills, nausea vomiting, dull right flank pain. She has had pain like this before but she feels it has been a while. She has no urinary symptoms though she does produce some urine. She had a fever 102 F yesterday. She is feeling hungry and endorsing good appetite. She has no GI symptoms, no dizziness. She has experiences some shaking and headaches but currently is free of those symptoms. In the ER he was negative for infection, chest x-ray was negative she was tachycardic at 104 temperature 37.8. Her BUN was 27 creatinine was 5.94, platelets were 44. Blood cultures were drawn. CT kidney stone protocol showed a concern for pyelonephritis on the right side with fat stranding, and she was given 1 dose of 2g IV ceftriaxone. Patient is saying that she gets dialysis on Tuesday that she is not due for one today. She was recently put on high-dose prednisone 60 mg for 1 week for a lupus flare up by Dr. White that she Has finished the course. She saying that she started dialysis in December of last year. Patient is admitted to the [facility] for pyelonephritis Review of Systems: Complete review of systems performed, pertinent positives and negatives per history of present illness, all other systems reviewed and are negative. Allergies Coded Allergies: nitrofurantoin (Verified Allergy, Unknown, 04/26/17) prazosin (Verified Adverse Reaction, Intermediate, anxiety, 04/26/17) Uncoded Allergies: IVORY SOAP (Allergy, Intermediate, 02/16/16) Home Medications Home medications include amlodipine and citalopram, losartan, metoprolol, omeprazole, renvela, sevelamir, Ambien [facility] Past medical history significant for lupus somewhat noncompliant with treatment , kidney failure on dialysis, lupus nephritis, hypertension, ITP, anxiety, depression with history of prior suicide attempts, breast abscess status post removal, IVC thrombus, descending aortic thrombus, pulmonary embolism not on anticoagulation because of lupus thrombocytopenia, cephalgias, anemia Surgical History Breast complex abscess status post resection, EGD, colonoscopy, Port-A-Cath, fistula, cholecystectomy Family History Mother with hypertension wants to give her a kidney Dad with a pacemaker Social History Hx Alcohol Use: No Hx Substance Use: Yes (Marijuana in capsules) Hx Tobacco Use: Yes (former smoker) Smoking Status: Former Smoker Living Arrangement: with Family (this is a 9-year-old son) Exam Vital Signs Vital Sign - Last Date Time Temp Pulse Resp B/P Pulse Ox O2 Delivery O2 Flow Rate FiO2 04/26/17 09:30 36.5 67 20 164/108 98 Room Air Exam General: NAD, laying in bed, some what dyspneic male HEENT: NCAT, poor dentition Eyes: [place] conjunctivae. No ptosis, PERRL Neck: No masses, trachea midline, no thyromegaly Lungs: CTA with normal respiratory effort, no crackles or wheezes CV: RRR, no murmurs/rubs/gallops, normal PMI GI: Soft, non-tender with no hepatosplenomegaly MSK: Normal gait and station, no digital cyanosis Skin: Warm and dry. No rash, lesions or ulcers Psych: A&O X3, with appropriate affect Tenderness to palpation of right flank Legs without edema Palpable pedal pulses Lungs are clear Abdomen nontender nondistended positive for right flank pain Lab and Diagnostics Result Diagram: 04/26/1732904/26/17329 Assessment & Plan This is a 21 yo Female with extensive kidney history thought to be due to lupus nephritis, is presenting today pyelonephritis. # acute infectious vs acute on chronic lupus nephritis, present on admission active -- The patient was given 1 dose of Ceftriaxone antibiotics in the ER however it is not clear if she is infected as much as her kidneys inflamed just recently was treated with high-dose prednisone for a week, she does not have skin/marar rash etc that would go along with lupus flare. -- We will consult nephrology Dr. Parks, she will order complement and dsDNA levels, we appreciate their time and recommendations. She feels that Pt may actually be having an infection as she had impressive fevers a -- Pain control with morphine and oxycodone, patient declined oxycodone -- Follow urine cultures -- Follow blood cultures -- Nausea control with zofran IV -- Continue IV Ceftriaxone QD until cultures are clear -- Continue home renal meds ESRD due to Lupus Nephritis, currently on dialysis -- MWF dialysis per nephrology -- Cont home renal meds Depression and anxiety chronic active Continue home medications Insomnia chronic active Continue medications Pain Evaluation: Pain not Controlled Resuscitation Status: CPR: Attempt Resuscitation Time spent 45 Minutes Staci Burnett DO Apr 26, 2017 10:34
[2017-04-27 00:40] VITALS: BP 117/72; PULSE 60; RESP 20; O2SAT 99
--- NOTE | 2017-04-27 01:46 | NUR ---
Pain On initial assessment, patient stated pain 5/10 on pain scale for right flank pain. 1mg morphine IVP administered. Patient alert and oriented. Answered assessment questions appropriately. VSS. Call light within reach. Care continues.
[2017-04-27 05:30] VITALS: BP 162/90; PULSE 65; RESP 20; O2SAT 100
[2017-04-27 06:01] LABS: BASOPHILS % (AUTO) 0.5 % (0-3); Mean Corpuscular Volume 98.8 fL (81-100)
[2017-04-27 06:34] LABS: EOSINOPHILS % (AUTO) 2.8 % (0-5); MONOCYTES % (AUTO) 9.3 % (4-12); Mean Corpuscular Hemoglobin 32.8 pg (27.0-35.0); NEUTROPHILS % (AUTO) 60.8 % (40-74); Platelet Count 44 bil/L (150-400)
[2017-04-27 08:29] VITALS: BP 152/103; PULSE 77; RESP 18; O2SAT 100
[2017-04-27] MEDS: MeTOProlol XL 50 mg ER24 Tablet PO SCH (08:30)
[2017-04-27] MEDS: cefTRIAXone Inj 1,000 MG in Dextrose 5% Minibag Plus 50 ML IV SCH ×2 (08:30→10:13)
[2017-04-27] MEDS: Pantoprazole 20 mg ER24 Tablet PO SCH (08:39)
--- NOTE | 2017-04-27 08:50 | NUR ---
Off unit Pt off unit to Dialysis at 0840. She requested all morning medications prior to dialysis, discussed this with Karen and decision made to hold Metoprolol but gave the rest. Unable to start antibiotic prior to transport, sent with pt. Given 1mg IV Morphine d/t 810 flank pain.
[2017-04-27 09:14] VITALS: BP 155/105; PULSE 78
--- NOTE | 2017-04-27 09:23 | NUR ---
Transfer for dialysis Patient arrived to unit in hospital bed. Report received from Yohan Lima RN. Pain continues. Medicated prior to coming to unit. No relief at this time. Up to bathroom to void. Steady gait. contract specialist at bedside. Addendum: 04/27/17 at 1410 by ZEUS GREGORY RN Returned to 1016 without incidence.
[2017-04-27] MEDS ORDERED: Trimethoprim-Sulfa 160 mg-800 mg Tablet PO SCH (12:05)
--- NOTE | 2017-04-27 12:07 | PCM.PNNEPH ---
Subjective Date of Service Apr 27, 2017 Subjective Pt is seen during HD, stable. No fever overnight. c/o right flank pain. No renal vein thromnbosis. High DS DNA and ESR. Low C3. Exam Vital Signs Vital Sign - Last Date Time Temp Pulse Resp B/P Pulse Ox O2 Delivery O2 Flow Rate FiO2 04/27/17 08:29 36.6 77 18 152/103 100 Room Air Intake and Output 04/26/17 04/26/17 04/27/17 Cumulative From/Thru 15:00 23:00 07:00 04/26/17 02:43 - 04/26/17 17:49 Intake Total 520 ml 520 ml Output Total 150 ml 150 ml Balance 370 ml 370 ml Intake Oral 520 ml 520 ml Output Urine Total 150 ml 150 ml # Bowel Movements 0 0 Exam General appearance: Awake, alert, oriented x3. No acute distress. HEENT: No pallor. No jaundice. No JVD. No lymphadenopathy. No thyroid enlargement. Heart: Regular rhythm. Normal S1, S2. No murmurs, rubs, or gallops. Lungs: Clear to auscultation bilaterally. No wheezing. No rhonchi. No rales. Abdomen: Soft, nontender, nondistended. No hepatosplenomegaly. Positive for right CVA tenderness. Extremities: No edema, cyanosis or clubbing of fingers. Lab and Diagnostics Result Diagram: 04/27/1753904/27/17 0540 Plan Impression ASSESSMENT: 1. Acute febrile illness. The etiology is infectious process versus autoimmune disease. - clean urine, no leucocytosis, neg blood culture. - high DS DNA and ESR, low C3. 2. Right flank pain. - rule out acute pyelonephritis per CT. - Renal US showed no renal vein thrombosis. 3. End-stage renal disease, on hemodialysis every Tuesday, Tuesday, and Tuesday. 3.4 hr, UF 2L, DFR 600, BFR 400, AVG 2K, 35HCO3. Revaclear. 4. Hypertension. 5. Chronic thrombocytopenia. 6. History of IVC thrombosis, ascending aortic thrombus and pulmonary embolism. 7. Renal osteodystrophy. 8. Anemia of chronic kidney disease. PLAN: 1. HD today. 2. Resume prednisone and cellcept. 3. Start bactrim for PCP prophylaxis. Braden Scruggs MD Apr 27, 2017 12:07
--- NOTE | 2017-04-27 12:39 | NUR ---
Pain Patient reported continual 7-8/10 right flank discomfort. Medicated with 2mg of Morphine for decreased discomfort
--- NOTE | 2017-04-27 13:41 | NUR ---
Return from dialysis Report taken from AMIE Jones. Pt reports tolerating well and has had improved pain control in her right flank with 2mg Morphine. Denies anxiety at this time.
--- NOTE | 2017-04-27 13:58 | NUR ---
Dialysis note: 3 1/2 hr tx Net UF 3000 Right UA fistula Pt had some anxiety during tx but resolved with talking, meds and tea clamped x 10 min and secured with gauze and plastic tape per pt request Report given to primary RN Rachel Pt returned to floor stable Please see DTR for complete record of VS
[2017-04-27] MEDS: predniSONE 20 mg Tablet PO SCH (14:07)
--- NOTE | 2017-04-27 16:17 | NUR ---
Social Work: Initial Assessment Data: Pt is a 26 y/o female admitted for fever /blanquita/ESRD. Pts PCP is Dr White, pt's insurance is Medicare with [facility] supp. EMR reviewed. CONTENT WRITER spoke with pt at bedside, role explained. Pt lives in a single story home in [place] with her 9 y/o son. Pt states she receives dialysis at the [facility]. Pt drives, has no hx of HH or SNF, no LTC or VA benefits. No d/c planning needs identified at this time. CONTENT WRITER will continue to follow if needs arise. Assessment: Pt on dialysis, capable of self care at this time. CONTENT WRITER will continue to follow. MALOU Barnett Addendum: 04/27/17 at 1619 by BENJAMIN DICKSON SS Amended: Links added.
--- NOTE | 2017-04-27 17:27 | NUR ---
Case Management: IMM explained to patient at 1640, all questions answered. Signed original placed in chart, copy given to patient. Tiara Gustafson RN
[2017-04-27 20:02] VITALS: BP 130/81; PULSE 69; RESP 16; O2SAT 98
--- NOTE | 2017-04-27 21:39 | PCM.PNMED ---
Subjective Date of Service Apr 27, 2017 Subjective Patient is seen and examined. She has had a known of dialysis this a.m. no change in pain levels, states she is only taking morphine not taking oral oxycodone. Nausea has resolved Exam Vital Signs Vital Sign - Last Date Time Temp Pulse Resp B/P Pulse Ox O2 Delivery O2 Flow Rate FiO2 04/27/17 20:02 36.8 69 16 130/81 98 Room Air Intake and Output 04/26/17 04/26/17 04/27/17 Cumulative From/Thru 15:00 23:00 07:00 04/26/17 02:43 - 04/26/17 17:49 Intake Total 520 ml 520 ml Output Total 150 ml 150 ml Balance 370 ml 370 ml Intake Oral 520 ml 520 ml Output Urine Total 150 ml 150 ml # Bowel Movements 0 0 Exam Gen.: No acute distress HEENT: Normocephalic, atraumatic Heart: Regular rate and rhythm no S3-S4 Sounds Lungs: Clear to Auscultation No Crackles or Wheezes Abdomen Nontender to Examination Normal bowel sounds, improved pain sensation over her right flank Extremities: Negative for edema Neuro: No focal deficits Psychiatric: No agitation IVs and Medications IV Fluids None Medications Reviewed: Medications were reviewed in detail Lab and Diagnostics Result Diagram: 04/27/1753904/27/17539 Assessment & Plan This is a 21 yo Female with extensive kidney history thought to be due to lupus nephritis, is presenting today pyelonephritis. # acute infectious vs acute on chronic lupus nephritis, present on admission improving -- The patient was given 1 dose of Ceftriaxone antibiotics in the ER however it is not clear if she is infected as much as her kidneys inflamed just recently was treated with high-dose prednisone for a week, she does not have skin/marar rash etc that would go along with lupus flare. -- We will consult nephrology Dr. Parks, she will order complement and dsDNA levels, we appreciate their time and recommendations. She feels that Pt may actually be having an infection as she had impressive fevers a -- Pain control with morphine and oxycodone, patient declined oxycodone -- Follow urine cultures: asked micro lab to add these on -- Follow blood cultures: Negative to date -- Continue IV Ceftriaxone QD until cultures are clear -- Continue home renal meds -- Nephrology is treating her with CellCept, prednisone, Bactrim based on elevated dsDNA and lowered C3 complement, this is lupus nephritis flare up The chronic diagnoses: Hypertension chronic stable -- Continue medications Chronic thrombocytopenia. Stable -- Platelets are 44, this appears to be her baseline History of IVC thrombosis, ascending aortic thrombus and pulmonary embolism. 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 -- Cont home renal meds Renal osteodystrophy. Anemia of chronic kidney disease. Depression and anxiety chronic active Continue home medications Insomnia chronic active Continue medications Pain Evaluation: Adequate Pain Control VTE Mechanical Devices: Intermittant Pneumatic CD Resuscitation Status: CPR: Attempt Resuscitation Time spent 25 minutes Staci Burnett DO Apr 27, 2017 21:38
[2017-04-27] MEDS: Ondansetron 2 mg/mL 2 mL Inj IVPUSH PRN (22:48)
--- NOTE | 2017-04-28 03:05 | NUR ---
Nausea/Pain Pt had nausea of unknown cause that was relieved with zofran, slow breaths, and smelling an alcohol wipe (old trick). No vomitus. She was able to drink water shortly after and lay down to rest. Pain 5/10 relieved with 2mg IV Morphine to 2-3/10.
[2017-04-28] MEDS: Ondansetron 2 mg/mL 2 mL Inj IVPUSH PRN ×3 (05:24→11:55)
[2017-04-28 05:44] VITALS: BP 136/87; PULSE 71; RESP 18; O2SAT 96
[2017-04-28] MEDS: Pantoprazole 20 mg ER24 Tablet PO SCH (08:14)
[2017-04-28] MEDS: MeTOProlol XL 50 mg ER24 Tablet PO SCH (08:15)
[2017-04-28] MEDS: predniSONE 20 mg Tablet PO SCH (08:15)
[2017-04-28 08:23] VITALS: BP 154/88; PULSE 64; RESP 20; O2SAT 99
[2017-04-28] MEDS: cefTRIAXone Inj 1,000 MG in Dextrose 5% Minibag Plus 50 ML IV SCH (10:14)
[2017-04-28] MEDS ORDERED: MYCO250C PO (11:28)
[2017-04-28] MEDS ORDERED: OXYC5TAB72 PO (11:28)
[2017-04-28] MEDS ORDERED: PRED-508 PO (11:28)
[2017-04-28] MEDS ORDERED: SULF1TAB35 PO (11:28)
--- NOTE | 2017-04-28 11:38 | PCM.DIMED ---
Discharge Instructions Date of Service Apr 28, 2017 Dates of Hospitalization Apr 26, 2017 at 08:04 Discharge Diagnosis Discharge Diagnosis lupus nephritis flare up, HTN, ESRD on dialysis Diet Discharge Diet: Renal Diet Activity Discharge Activity: No restrictions Call your provider Call your provider for: Fever or Chills, Shortness of breath, Bleeding, Chest pain, Vomitting, Excessive diarrhea, Weakness (unilateral), Other Patient Instructions Patient Instructions Please see Dr. Cook Rheum in one week Please see Dr. Parks on Tue dialysis, cont MWF dialysis Please do not drive if taking pain meds Staci Burnett DO Apr 28, 2017 11:38
--- NOTE | 2017-04-28 11:38 | PCM.DC.MED ---
Discharge Summary Date of Service Apr 28, 2017 Dates of Hospitalization Date of Hospital Admission Apr 26, 2017 at 08:04 Date of Discharge: Apr 28, 2017 Providers: Admitting Physician: Alcon Gutierrez DO Primary Care Physician: Haroldo White DO Attending Physician: Alcon Gutierrez DO Diagnosis at Time of Discharge Diagnosis at Time of Discharge lupus nephritis flare up, HTN, ESRD on dialysis Consultations Nephrology Brief History 26-year-old female with past medical history of lupus nephritis, IVC thrombus, descending aortic thrombus, almond embolism, anemia is presenting with right flank pain that has been ongoing since yesterday. She is endorsing fevers that are more than normal because of her lupus, chills, nausea vomiting, dull right flank pain. She has had pain like this before but she feels it has been a while. She has no urinary symptoms though she does produce some urine. She had a fever 102 F yesterday. She is feeling hungry and endorsing good appetite. She has no GI symptoms, no dizziness. She has experiences some shaking and headaches but currently is free of those symptoms. In the ER he was negative for infection, chest x-ray was negative she was tachycardic at 104 temperature 37.8. Her BUN was 27 creatinine was 5.94, platelets were 44. Blood cultures were drawn. CT kidney stone protocol showed a concern for pyelonephritis on the right side with fat stranding, and she was given 1 dose of 2g IV ceftriaxone. Patient is saying that she gets dialysis on Tuesday that she is not due for one today. She was recently put on high-dose prednisone 60 mg for 1 week for a lupus flare up by Dr. White that she Has finished the course. She saying that she started dialysis in December of last year. Patient is admitted to the [facility] team for pyelonephritis Hospital Course This is a 21 yo Female with extensive kidney history thought to be due to lupus nephritis, is presenting today pyelonephritis. # acute on chronic lupus nephritis, present on admission improving -- Dr. Parks was consulted from nephrology, she has ordered complement and dsDNA levels, we appreciate their time and recommendations. ds DNA was elevated C3 was low indicating lupus nephritis -- Pain control with morphine and oxycodone, patient declined oxycodone -- Follow urine cultures: asked micro lab to add these on 04/27 cultures showed no growth, reacts and was started in the ER discontinued after blood cultures and urine culture showed no growth to date -- Follow blood cultures: Negative to date -- Continued home renal meds -- Nephrology recommends treating her with CellCept, prednisone, Bactrim based on elevated dsDNA and lowered C3 complement, this is lupus nephritis flare up, they recommend a month worth of these scripts at discharge, follow up with her cad operator Dr. cook -- Patient is wanting to go home in the evening before and the morning of her discharge, she herself called Dr. Cook and made an appointment for Tuesday. -- Patient is also given prescription for oxycodone and Zofran Hyperkalemia, resolved -- Patient had a potassium 5.5 yesterday, today 5.2 The chronic diagnoses: Hypertension chronic stable -- Continue medications Chronic thrombocytopenia. Stable -- Platelets are 44 on 04/27, this appears to be her baseline History of IVC thrombosis, ascending aortic thrombus and pulmonary embolism. 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 -- Cont home renal meds Renal osteodystrophy. Anemia of chronic kidney disease. Depression and anxiety chronic active Continue home medications Insomnia chronic active Continue medications Exam Vital Signs (Last) Date Time Temp Pulse Resp B/P Pulse Ox O2 Delivery O2 Flow Rate FiO2 04/28/17 08:23 36.9 64 20 154/88 99 Room Air Exam General: NAD, laying in bed, HEENT: NCAT Eyes: [place] conjunctivae. No ptosis, PERRL Neck: No masses, trachea midline, no thyromegaly Lungs: CTA with normal respiratory effort, no crackles or wheezes CV: RRR, no murmurs/rubs/gallops, normal PMI GI: Soft, non-tender with no hepatosplenomegaly MSK: Normal gait and station, no digital cyanosis Skin: Warm and dry. No rash, lesions or ulcers Psych: A&O X3, with appropriate affect Vascular: Mild facial swelling is present Test 04/26/17 03:30 04/26/17 13:35 04/27/17 05:40 Hematology Comments Rbc Urine Color Straw (YELLOW) Urine Appearance Hazy (CLEAR,HAZY) Urine pH 8.5 (5.0-8.0) Urine Specific [place] 1.009 (1.003-1.035) Urine Protein 100mg/dL (NEG,TRACE) Urine Glucose (UA) 100mg/dL (NEGATIVE) Urine Ketones Negativemg/dL (NEGATIVE) Urine Occult Blood Small (NEGATIVE) Urine Nitrite Negative (NEGATIVE) Urine Bilirubin Negative (NEGATIVE) Urine Urobilinogen Normalmg/dL (NORMAL) Urine Leukocyte Esterase Negative (NEGATIVE) Urine RBC 3-10/hpf (0-2) Urine WBC 0-5/hpf (0-5) Urine Epithelial Cells Few/hpf (NONE-MOD) Urine Crystals None seen (NONE SEEN) Urine Bacteria Few/hpf (NONE-FEW) Urine Hyaline Casts None/lpf (NONE) Urine Granular Casts None seen (NONE SEEN) Urine Waxy Casts None seen (NONE SEEN) Urine Red Blood Cell Casts None seen (NONE SEEN) Urine White Blood Cell Casts None seen (NONE SEEN) Urine Mucus None seen (None Seen) Urine Trichomonas None seen (NONE SEEN) Urine Yeast None (NONE SEEN) Urinalysis Comment None Urine Culture Reflexed Not indicated Hold Urine Received (Received) Magnesium Level 1.6mg/dL (1.6-2.6) C-Reactive Protein 0.2mg/dL (0.0-0.5) Hold Burroughs Top Tube Received (Received) Erythrocyte Sedimentation Rate 38mm/hr (0-32) D-Dimer 1.11mg/L FEU (<0.50) Anti-Double Strand DNA Antibody 121IU/mL (0-9) Complement C3 67mg/dL (82-167) Complement C4 23mg/dL (14-44) White Blood Count 4.0th/mm3 (3.8-10.1) Red Blood Count 3.26mil/mm3 (3.90-5.20) Hemoglobin 10.7g/dL (12.0-15.6) Hematocrit 32.2% (35.0-46.0) Mean Corpuscular Volume 98.8fL (81-100) Mean Corpuscular Hemoglobin 32.8pg (27.0-35.0) Mean Corpuscular Hemoglobin Concent 33.2% (32.0-37.0) Red Cell Distribution Width 13.1% (12.3-15.4) Platelet Count 44bil/L (150-400) Neutrophils (%) (Auto) 60.8% (40-74) Lymphocytes (%) (Auto) 26.1% (14-46) Monocytes (%) (Auto) 9.3% (4-12) Eosinophils (%) (Auto) 2.8% (0-5) Basophils (%) (Auto) 0.5% (0-3) Sodium Level 140mEq/L (134-144) Potassium Level 5.5mEq/L (3.5-5.2) Chloride Level 97mEq/L (97-108) Carbon Dioxide Level 26mmol/L (18-29) Blood Urea Nitrogen 41mg/dL (6-20) Creatinine 9.07mg/dL (0.57-1.00) Estimat Glomerular Filtration Rate 8mL/min (>59) Glucose Level 84mg/dL (60-99) Calcium Level 7.7mg/dL (8.5-10.1) Total Bilirubin 0.3mg/dL (0.0-1.2) Aspartate Amino Transf (AST/SGOT) 24U/L (0-50) Alanine Aminotransferase (ALT/SGPT) 21U/L (0-32) Alkaline Phosphatase 103U/L (25-150) Total Protein 6.5g/dL (6.4-8.4) Albumin 3.9g/dL (3.4-5.0) Lipase 45U/L (13-60) Discharge Medications Discharge Medications Amlodipine (Amlodipine) 10 Mg Tablet 10 MG PO QAM (Reported) Cinacalcet (Sensipar) 30 Mg Tablet 30 MG PO DAILY (Reported) Citalopram (Citalopram) 10 Mg Tablet 10 MG PO DAILY Prescribed by: TANISHA MENDIOLA DO Losartan Potassium (Losartan Potassium) 50 Mg Tablet 50 MG PO DAILY (Reported) Metoprolol Succinate ER (Metoprolol Succinate ER) 100 Mg Tab.er.24h 100 MG PO QAM (Reported) Mycophenolate Mofetil (Cellcept) 250 Mg Capsule 250 MG PO BIDAC Prescribed by: ALCON GUTIERREZ DO Omeprazole (Omeprazole) 20 Mg Capsule.dr 20 MG PO Every Other Day (Reported) Prednisone (Deltasone) 20 Mg Tablet 40 MG PO DAILY Prescribed by: ALCON GUTIERREZ DO Sevelamer Carbonate (Renvela) 800 Mg Tablet 800 MG PO QID (Reported) Sulfamethoxazole/Trimeth 800-160 mg (Bactrim DS 800-160 mg) 1 Each Tablet 1 TABLET PO MoWeFr Prescribed by: ALCON GUTIERREZ DO Zolpidem (Zolpidem) 5 Mg Tablet 5 MG PO HS (Reported) As needed oxyCODONE (oxyCODONE) 5 Mg Tablet 5 MG PO Q4H PRN PRN FOR SEVERE Prescribed by: ALCON GUTIERREZ DO Followup Plan Discharge Diet: Renal Diet Discharge Activity: No restrictions Patient Instructions Please see Dr. Cook Rheum in one week Please see Dr. Parks on Tue dialysis, cont MWF dialysis Please do not drive if taking pain meds Time spent Greater than 30 minutes was spent in preparation of discharge is greater than 50 % of the time dedicated to patient counseling and coordination of care Alcon Gutierrez DO Apr 28, 2017 11:38
--- NOTE | 2017-04-28 12:44 | NUR ---
Social Work- Discharge/Multidisciplinary Rounds Data: EMR reviewed. Pt is on day 2 of hospitalization for Fever, Tor[place], ESRD per H&P. Pt discussed in rounds. Pt is medically stable for discharge today. Discharge orders are active. Pt will discharge home via POV. No discharge needs identified. Assessment: Pt who is independent at baseline. Plan: Pt will discharge home via POV. No discharge needs identified. MALOU Rodriguez
--- NOTE | 2017-04-28 13:22 | NUR ---
DISCHARGE Patient was medicated with Oxicodone 5 mg PO for complaints of abdominal pain. This has been effective for pain control. Zofran administered for complaints of nausea. Patient tolerated liquids PO and ate 50 % of her lunch. No emesis noted. Patient has a HX: Acid reflux. Instructed patient RE: Acid reflux and she verbalized understanding. Denies SOB. Patient has been ambulating independently in the room. IV saline lock d/cd. Discharge instructions, care notes and prescription was given to the patient and she verbalized understanding. Discharged to home with her father and all her personal belongings. (Copy of D/C is in the chart). *Dr. Burnett was notified RE: BMP results prior to D/C and she has cleared patient for D/C. Addendum: 04/28/17 at 1509 by ASHLY MERLOS RN ADDENDUM: Dr. Burnett assessed patient this morning and has talked to her about her abdominal pain and pain medication prior to D/C. Patient was advised to stay after lunch to assess nausea but she wanted to D/C after lunch. No emesis noted at the time of discharge and she ate 50 % of her lunch prior to D/C.
== END 2017-04-28 13:00 | disposition home or self-care (01) | DRG 690 ==
LOC: SED 02:37 → OSC 08:04 → OBSVTOIN 08:04
PROVIDERS: ADMIT Family Medicine; ATTEND Family Medicine
PROC: 5A1D00Z (ICD-10-PCS; principal; 2017-04-27)
DX: N10 Acute pyelonephritis (principal); I12.0 Hypertensive chronic kidney disease with stage 5 chronic kidney disease or end stage renal disease; N18.6 End stage renal disease; Z99.2 Dependence on renal dialysis; M32.9 Systemic lupus erythematosus, unspecified; M32.14 Glomerular disease in systemic lupus erythematosus; D63.1 Anemia in chronic kidney disease; D69.6 Thrombocytopenia, unspecified; F12.90 Cannabis use, unspecified, uncomplicated; G47.00 Insomnia, unspecified; E87.5 Hyperkalemia; F41.8 Other specified anxiety disorders; Z86.711 Personal history of pulmonary embolism; Z91.14 Patient's other noncompliance with medication regimen; Z90.49 Acquired absence of other specified parts of digestive tract

== ENCOUNTER 2017-04-28 14:30 | Observation (INO) | payer MEDICARE, MEDICAID ==
[~2017-04-28] VITALS: Ht 152.4 cm; Wt 46.0 kg
[~2017-04-28 14:30] MED LIST changes: +CINA30TA PO; -LOSA100T29 PO; +LOSA50TA37 PO; -METO-274 PO; +METO-394 PO; +MYCO250C PO; +OXYC-530 PO; +PRED-508 PO; +SULF1TAB35 PO
[2017-04-28 14:48] VITALS: BP 128/85; PULSE 67; RESP 10; O2SAT 98
[2017-04-28 15:43] VITALS: BP 144/90; PULSE 60; RESP 18; O2SAT 100
--- NOTE | 2017-04-28 16:18 | NUR ---
ADMIT Patient stated that 40 minutes after she got home she vomited and had abdominal pain. Rated abdominal as 10/10 after she vomited at home. Patient stated that per her pharmacy her medication will not be available till tomorrow. Upon admission to the room patient stated that she does not have any pain or nausea at this time. No emesis noted. Denies SOB. Gait is steady. Ambulating independently. Pls. refer to admit grid for H/P. Oriented to room and call light.
[2017-04-28] MEDS ORDERED: Polyethylene Glycol (PEG) 17 Gm Powder PO PRN (16:25)
[2017-04-28] MEDS ORDERED: Alum-Mag Hydrox-Simeth 30 mL Suspension PO PRN (16:25)
--- NOTE | 2017-04-28 16:37 | PCM.HPMED ---
Subjective Date of Service Apr 28, 2017 Primary Provider: Admitting Physician: Staci Burnett DO Primary Care Physician: Haroldo White DO Attending Physician: Staci Burnett DO Admit Status: Direct Admit Chief Complaint: Lower abdominal pain History of Present Illness: The following is from her prior admit on 04/26/17: "26-year-old female with past medical history of lupus nephritis, IVC thrombus, descending aortic thrombus, almond embolism, anemia is presenting with right flank pain that has been ongoing since yesterday. She is endorsing fevers that are more than normal because of her lupus, chills, nausea vomiting, dull right flank pain. She has had pain like this before but she feels it has been a while. She has no urinary symptoms though she does produce some urine. She had a fever 102 F yesterday. She is feeling hungry and endorsing good appetite. She has no GI symptoms, no dizziness. She has experiences some shaking and headaches but currently is free of those symptoms. In the ER he was negative for infection, chest x-ray was negative she was tachycardic at 104 temperature 37.8. Her BUN was 27 creatinine was 5.94, platelets were 44. Blood cultures were drawn. CT kidney stone protocol showed a concern for pyelonephritis on the right side with fat stranding, and she was given 1 dose of 2g IV ceftriaxone. Patient is saying that she gets dialysis on Tuesday that she is not due for one today. She was recently put on high-dose prednisone 60 mg for 1 week for a lupus flare up by Dr. White that she Has finished the course. She saying that she started dialysis in December of last year. Patient is admitted to the [facility] team for pyelonephritis" Doing [facility] admission patient is found to have lupus nephritis based on nephrology assessment, she was given medication CellCept, prednisone, Bactrim to treat it accordingly. Her pain was controlled on morphine IV as well as by mouth oxycodone. On 04/27, 04/28 patient expressed desire to be discharged home on by mouth medications. Her abdominal examination on the morning of 04/28 was completely benign. The patient did not want any pain medication to take home, but we have given her the 3 above medications and prescription for Zofran and oxycodone. Later in the afternoon patient has presented to the emergency room waiting room asking to be seen again. I have talked with her on the phone, she states that she took the prescription to fill her prescriptions at [facility], but they needed till tomorrow to fill her prescription, and she been home without any medication. Soon after she became overwhelmed with abdominal pain, which was not present on the in the a.m. the night before. She also had nausea that is so severe that she decided to come back to the hospital. She states she does not know why she got so sick this afternoon. On my examination, patient appeared mildly edematous (she confirms to me that every time she takes prednisone she swells up), cooperative, asking for pain medication for her abdominal pain. Expressed no other concerns. Patient is admitted back to a room #1016 under [facility] team Review of Systems: Complete review of systems performed, pertinent positives and negatives per history of present illness, all other systems reviewed and are negative. Allergies Coded Allergies: nitrofurantoin (Verified Allergy, Unknown, 04/26/17) prazosin (Verified Adverse Reaction, Intermediate, anxiety, 04/26/17) Uncoded Allergies: IVORY SOAP (Allergy, Intermediate, 02/16/16) Home Medications Home medications include amlodipine and citalopram, losartan, metoprolol, omeprazole, renvela, sevelamir, Ambien. Noted the newly added medications from the discharge this a.m.: CellCept, prednisone, Bactrim PMH Social History Hx Alcohol Use: No Hx Substance Use: Yes (Marijuana in capsules. ) Hx Tobacco Use: Yes (former smoker) Smoking Status: Former Smoker Exam Vital Signs Vital Sign - Last Date Time Temp Pulse Resp B/P Pulse Ox O2 Delivery O2 Flow Rate FiO2 04/28/17 15:43 36.6 60 18 144/90 100 Room Air Exam General: NAD, laying in bed, some what distressed HEENT: NCAT, facial edema noted Eyes: [place] conjunctivae. No ptosis, PERRL Neck: No masses, trachea midline, no thyromegaly Lungs: CTA with normal respiratory effort, no crackles or wheezes CV: RRR, no murmurs/rubs/gallops, normal PMI GI: Soft, non-tender with no hepatosplenomegaly, tenderness over bladder MSK: Normal gait and station, no digital cyanosis Skin: Warm and dry. No rash, lesions or ulcers Psych: A&O X3, with appropriate affect Lab and Diagnostics Labs Seen lab results show sodium of 1:30, potassium 5.2, chloride 8 6086, bicarbonate 23, BUN 43, creatinine 7.82, glucose 123, calcium 8.4 Assessment & Plan This is a 21 yo Female with extensive kidney history thought to be due to lupus nephritis, is presenting today lupus nephritis that was previously diagnosed during her 04/26/17 through 04/28/17 admission # acute on chronic lupus nephritis, present on admission active -- Patient had abdominal pain in a different location from before (before she had right flank pain), I had discussed with her in the a.m that she would have pain, she opted to take by mouth medication to go home, however was unable to obtain medication as pharmacy needed at the to fill her medications. She also made that appointment with her physician Dr. Cook in rheumatology for Tuesday -- We will consult nephrology Dr. 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
[2017-04-28 20:29] VITALS: BP 143/92; PULSE 69; RESP 16; O2SAT 97
[2017-04-28] MEDS: Ondansetron 2 mg/mL 2 mL Inj IVPUSH PRN (21:22)
[2017-04-28] MEDS: Famotidine Inj 20 MG in IV Premix 1 EACH IV SCH (21:33)
[2017-04-29 00:14] VITALS: BP 140/85; PULSE 58; RESP 16; O2SAT 99
[2017-04-29] MEDS: Ondansetron 2 mg/mL 2 mL Inj IVPUSH PRN ×2 (01:51→06:21)
--- NOTE | 2017-04-29 03:45 | NUR ---
Pain/ Nausea Pt. has reported nausea throughout shift. No emesis noted. 4mg IV Zofran given. Effective. Pt. reported headache of 8.5/10 earlier in shift. IV morphine 2mg given. Effective. Will continue to monitor.
[2017-04-29 03:58] VITALS: BP 144/82; PULSE 50; RESP 18; O2SAT 96
[2017-04-29] MEDS ORDERED: Trimethoprim-Sulfa 160 mg-800 mg Tablet PO SCH (06:00)
[2017-04-29 07:53] VITALS: BP 147/85; PULSE 62; RESP 16; O2SAT 99
--- NOTE | 2017-04-29 08:24 | NUR ---
TO DIALYSIS Report given to AMIE Burr. Patient transported to [facility] for dialysis in a hospital bed.
--- NOTE | 2017-04-29 08:28 | NUR ---
Pt arrived to [facility]: Pt arrived to [facility] for dialysis treatment. Pt appears stable at time of transfer. Report given by Yohan Rivero RN. Addendum: 04/29/17 at 1230 by CASSY STEVE RN Pt completed treatment and may return to [facility]. Pt tolerated treatment without any complaints of nausea/vomiting or headache. Slept through entire run. Report given to Yohan Rivero RN.
[2017-04-29 08:40] VITALS: BP 155/96; PULSE 57
--- NOTE | 2017-04-29 10:35 | NUR ---
Social Work: Initial Assessment/Readiness for Discharge/Multidisciplinary Rounds D: EMR reviewed. See initial assessment linked to this note for further information. Pt is a 26 y/o female admitted [facility] for nausea/vomiting per H&P. Pt's readmit risk score is 6. Pt's insurance is Medicare with [facility]. PCP is Haroldo White MD. SW met with pt at bedside to conduct initial assessment. Pt was alert and oriented x3. SW explained role and wrote phone number on white board in room. SW provided "Your Discharge Planning Checklist" and encouraged pt to call SW for any discharge planning needs. SW discussed pt's reason for readmit. Pt stated she went to [facility] to get her rx filled at discharge and they were out of one of her medications. Pt stated rx are at [facility] and [facility] confirmed they ordered a new supply and her medications will be ready for pick-up at time of discharge. SW asked if pt had any concerns about discharging today and filling her rx. Pt stated her parents would provide transport and pick-up her medications from [facility]. Pt did not express any concerns about discharging today. A: Pt on dialysis, capable of self care at this time. SW will continue to follow. P: Pt likely to discharge home with parents via POV today. No SW needs identified. No MD orders received. SW will continue to follow. MALOU العلي Addendum: 04/29/17 at 1435 by JOHAN JONES SS Amended: Links added.
--- NOTE | 2017-04-29 12:03 | PCM.PNNEPH ---
Subjective Date of Service Apr 29, 2017 Melia Mcghee is quite well known to us as we have been following her for end-stage renal disease secondary to lupus. She was discharged from the hospital yesterday but was subsequently readmitted due to nausea and vomiting secondary to the CellCept that she was prescribed for her lupus. She has been on this medication in the past and has had some nausea and vomiting associated with this. She was seen in dialysis today where she was dialyzed for her regular treatment. In the last several weeks she has been having some intermittent fever, chills, general malaise and lethargy. Cultures have been negative and it was my feeling that she was having a flare of her lupus. I gave her a burst O follow-up oral prednisone without significant improvement. She was subsequently admitted for flare of lupus and was seen by my partner Dr. Parks. She was also seen by Dr. koenig from hematology. This morning she states that she still has some nausea and vomiting but is hungry. She also relates some abdominal pain from vomiting. There is no diarrhea, fever, chills, or perioral ulcerations. She does not have a malar rash. Exam Vital Signs Vital Sign - Last Date Time Temp Pulse Resp B/P Pulse Ox O2 Delivery O2 Flow Rate FiO2 04/29/17 08:40 57 04/29/17 07:53 36.6 16 147/85 99 Room Air Intake and Output 04/28/17 04/28/17 04/29/17 Cumulative From/Thru 15:00 23:00 07:00 04/28/17 14:48 - 04/29/17 06:13 Intake Total 0 ml 520 ml 520 ml Output Total 0 ml 0 ml Balance 0 ml 520 ml 520 ml Intake Oral 0 ml 520 ml 520 ml Output Urine Total 0 ml 0 ml # Voids 0 0 Exam HEENT examination is remarkable for pale sclera. Neck is supple without adenopathy, thyromegaly, or jugular venous distention. Lungs are clear to auscultation. Heart was regular and rhythmical with a soft systolic murmur. Abdomen shows some diminished bowel sounds and she does have some mild diffuse tenderness to palpation but no, rebound, guarding, masses, or hepatosplenomegaly. Strength is symmetrically evidence of any clubbing cyanosis or edema. Skin turgor is good. There is no evidence of any rashes. Lab and Diagnostics Result Diagram: 04/29/17 0553 Plan Impression Impression #1 end-stage renal disease dialysis dependent #2 hypertension with hypertensive heart disease and hypertensive nephrosclerosis #3 acute flare of systemic lupus with lupus nephritis. Recommendations #1 the patient's predialysis today for 3-1/2 hours on a standard dialyzer, 2 potassium bath, 1000 of heparin and 200 take 2 L of fluid off. Also on her blood flow 450 and dialysate flow 600. Haroldo White DO Apr 29, 2017 12:03
--- NOTE | 2017-04-29 12:20 | NUR ---
Dialysis note: 3 1/2 hrs tx 2000 ml net UF ERMIAS fistula, accessed w/ no problems Pls see DTR for VS details Qb 350 Heparin given O2 @ 2L via NC on during tx Tolerated tx, slept at intervals Fistula needle sites clotted w/in 10 min Stable condition at end of tx Report given to Aminah HOLLOWAY
--- NOTE | 2017-04-29 12:54 | NUR ---
BACK FROM DIALYSIS Patient is back from dialysis. Denies pain, nausea/SOB. Patient refused clear liquids and wants her diet advanced. Dr. Burnett paged. Waiting for orders/call back.
--- NOTE | 2017-04-29 13:00 | NUR ---
JOSEPH explained and signed. Copy of JOSEPH and Medicare self administered medication information given to pt.
[2017-04-29 13:17] VITALS: BP 121/78; PULSE 60; RESP 18; O2SAT 96
[2017-04-29] MEDS: predniSONE 20 mg Tablet PO SCH (14:15)
--- NOTE | 2017-04-29 16:31 | NUR ---
Social Work: Discharge D: EMR reviewed. Pt is on day 1 of hospitalization. SW discussed pt's reason for readmit. Pt stated she went to [facility] to get her rx filled at discharge and they were out of one of her medications. Pt stated rx are at [facility] and [facility] confirmed they ordered a new supply and her medications will be ready for pick-up at time of discharge. SW asked if pt had any concerns about discharging today and filling her rx. Pt stated her parents would provide transport and pick-up her medications from [facility]. Pt did not express any concerns about discharging today. A: Pt on dialysis, capable of self care at this time. SW will continue to follow. P: Pt likely to discharge home with parents via POV today. No SW needs identified. No MD orders received. SW will continue to follow. MALOU العلي
--- NOTE | 2017-04-29 17:20 | NUR ---
NUTRITION ASSESSMENT: ASSESS: 26YOF admit with n/v associated with recent start of medication. Pt on dialysis related to systemic lupus nephritis. PMHX: Lupus nephritis, DIET: Renal. Nepro at lunch. PO 25-50% LABS: Na 132, BUN 59, K+5.7, Cr 9.93, Alb 3.9 MEDS: Reviewed GI: No BM WEIGHT: 46.0kg BMI: 19.8 EST.NEEDS: ESRD (30-35kcal/kg;1.2-2.0g/kg pro) Kcal: [id number] Pro: 55-90g NUTRITION DIAGNOSIS: (1) Increased energy protein needs related to increased demand for nutrients as evidenced by lupus nephritis/dialysis dependence. INTERVENTION: (1) Renal supplement (Nepro) added to lunch meal tray. MONITOR/EVALUATE: PO intake, lab values. F/U per moderaet risk.
--- NOTE | 2017-04-29 18:00 | NUR ---
GI/ACTIVITY/PRESCRIPTION Patient denies any abdominal pain or headache. She did not require any pain medication this shift. Tolerating liquids PO and her diet well. Denies nausea. No emesis noted. Denies SOB. Patient has been ambulating independently in the room and in the hallway. Gait is steady. PRESCRIPTION: *Verified with Dr. Burnett: May substitute Zofran to generic Ondansetron. [facility] in [place] made aware. VERIFIED WITH [facility]: PATIENT'S PRESCRIPTION WAS READY FOR PICK-UP 04/28 PM. IT WILL BE READY FOR PAPER TWISTER TENDER TOMORROW.
--- NOTE | 2017-04-29 18:45 | NUR ---
TRANSFER OF CARE Patient wanted to go out of the floor after dinner and this inspector automatic typewriter made patient aware RE: Policy. Report given to Tiera Villatoro RN. Patient stated that her dad is in the ED and she needs to see him. Endorsed care to Tiera Villatoro RN and she is aware of patients desire to go out of the floor.
[2017-04-29] MEDS: Famotidine Inj 20 MG in IV Premix 1 EACH IV SCH (21:00)
[2017-04-29] MEDS ORDERED: hydrOXYzine Pamoate 25 mg Capsule PO PRN (21:15)
[2017-04-29 21:35] VITALS: BP 153/105; PULSE 67; RESP 16; O2SAT 100
--- NOTE | 2017-04-29 23:47 | PCM.PNMED ---
Subjective Date of Service Apr 29, 2017 Subjective Patient is seen and examined. She is tearful, as she left the floor to go see her dad who was in the ER. She says that her dad cannot speak German, and she is worried about him. She would like to be discharged home tomorrow a.m. no other concerns Exam Vital Signs Vital Sign - Last Date Time Temp Pulse Resp B/P Pulse Ox O2 Delivery O2 Flow Rate FiO2 04/29/17 21:35 36.8 67 16 153/105 100 Room Air Intake and Output 04/28/17 04/28/17 04/29/17 Cumulative From/Thru 15:00 23:00 07:00 04/28/17 14:48 - 04/29/17 06:13 Intake Total 0 ml 520 ml 520 ml Output Total 0 ml 0 ml Balance 0 ml 520 ml 520 ml Intake Oral 0 ml 520 ml 520 ml Output Urine Total 0 ml 0 ml # Voids 0 0 Exam General: NAD, laying in bed, crying HEENT: NCAT Eyes: [employer] conjunctivae. No ptosis, PERRL Neck: No masses, trachea midline, no thyromegaly Lungs: CTA with normal respiratory effort, no crackles or wheezes CV: RRR, no murmurs/rubs/gallops, normal PMI MSK: Normal gait and station, no digital cyanosis Skin: Warm and dry. No rash, lesions or ulcers Psych: A&O X3, with appropriate affect IVs and Medications IV Fluids none Medications Reviewed: Medications were reviewed in detail Lab and Diagnostics Result Diagram: 04/29/17 0553 Assessment & Plan This is a 21 yo Female with extensive kidney history thought to be due to lupus nephritis, is presenting today lupus nephritis that was previously diagnosed during her 04/26/17 through 04/28/17 admission # acute on chronic lupus nephritis, present on admission active -- Patient had abdominal pain in a different location from before (before she had right flank pain), I had discussed with her in the a.m that she would have pain, she opted to take by mouth medication to go home, however was unable to obtain medication as pharmacy needed at the to fill her medications. She also made that appointment with her physician Dr. Cook in rheumatology for Tuesday -- We will consult nephrology Dr. 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
[2017-04-30 00:29] VITALS: BP 147/88; PULSE 59; RESP 16; O2SAT 97
--- NOTE | 2017-04-30 06:46 | NUR ---
NOC PT up and ambulating. Denies any pain or nausea. PT went up to the 2nd floor to visit her father who was admitted. PT quite anxious before seeing him, but more calm after vistaril was given and she spoke with MD upstairs regarding her Dad. PT planning for d/c today.
[2017-04-30 07:27] VITALS: BP 155/91; PULSE 55; RESP 18; O2SAT 99
--- NOTE | 2017-04-30 10:04 | PCM.DIMED ---
Discharge Instructions Date of Service Apr 30, 2017 Dates of Hospitalization Apr 28, 2017 at 14:30 Discharge Diagnosis Discharge Diagnosis acute on chronic lupus nephritis, HTN Diet Discharge Diet: Renal Diet Activity Discharge Activity: Other (pl do not drive if you are taking pain meds) Call your provider Call your provider for: Fever or Chills, Shortness of breath, Bleeding, Chest pain, Vomitting, Excessive diarrhea, Weakness (unilateral), Other Patient Instructions Follow-up plan Please see Dr. Ignacio 05/02/17 Please shrimp picker your scripts from pharmacy F/U for dialysis Staci Choudhury DO Apr 30, 2017 10:04
[2017-04-30] MEDS: predniSONE 20 mg Tablet PO SCH (10:12)
--- NOTE | 2017-04-30 11:22 | PCM.PNNEPH ---
Subjective Date of Service Apr 30, 2017 Subjective M states that she is feeling better today. She is able to tolerate her oral intake without worsening over nausea or vomiting. She states that other than some fever and night sweats she feels that her lupus symptoms are improving. Exam Vital Signs Vital Sign - Last Date Time Temp Pulse Resp B/P Pulse Ox O2 Delivery O2 Flow Rate FiO2 04/30/17 07:27 36.7 55 18 155/91 99 Room Air Intake and Output 04/29/17 04/29/17 04/30/17 Cumulative From/Thru 15:00 23:00 07:00 04/28/17 14:48 - 04/29/17 17:59 Intake Total 640 ml 1160 ml Output Total 2000 ml 50 ml 2050 ml Balance -2000 ml 590 ml -890 ml Intake Oral 640 ml 1160 ml Output Urine Total 50 ml 50 ml Ultrafiltrate 2000 ml 2000 ml # Voids 0 Exam Neck is supple without adenopathy, thyromegaly, or jugular venous distention. Lungs were clear to auscultation. Heart is regular and rhythmical with a soft systolic murmur. Abdomen is soft without any tenderness rebound guarding masses or hepatosplenomegaly. Extremities show any evidence of edema or rashes. Lab and Diagnostics Result Diagram: 04/29/17 0553 Plan Impression Impression #1 end-stage renal disease dialysis dependent #2 acute exacerbation of lupus and history of lupus nephritis #3 hypertension with hypertensive heart disease and hypertensive nephrosclerosis Recommendations #1 from my point of view she can be discharged today with instructions to follow up on Tuesday for her routine dialysis treatment. Haroldo White DO Apr 30, 2017 11:22
--- NOTE | 2017-04-30 13:43 | NUR ---
Social Work: Discharge/Multidisciplinary Rounds D: EMR reviewed. Pt is on day 2 of hospitalization. Per multidisciplinary rounds, pt is medically stable for discharge today. SW asked if pt had any concerns about discharging today and filling her rx. Pt stated her sister will provide transport and pick-up her medications from [facility]. Pt stated she had a concern with how she was treated by a manager roofing [employer]. SW provided pt with pt advocacy card to discuss concerns with hospital administration. Pt agreeable. A: Pt on dialysis, capable of self care at this time. SW will continue to follow. P: Pt discharged home with sister via POV today. No SW needs identified. No MD orders received. SW will continue to follow. MALOU العلي
--- NOTE | 2017-04-30 23:01 | PCM.DC.MED ---
Discharge Summary Date of Service Apr 30, 2017 Dates of Hospitalization Date of Hospital Admission Apr 28, 2017 at 14:30 Date of Discharge: Apr 30, 2017 Providers: Admitting Physician: Staci Gutierrez DO Primary Care Physician: Haroldo White DO Attending Physician: Staci Gutierrez DO Diagnosis at Time of Discharge Diagnosis at Time of Discharge acute on chronic lupus nephritis, HTN Consultations nephrology Brief History The following is from her prior admit on 04/26/17: "26-year-old female with past medical history of lupus nephritis, IVC thrombus, descending aortic thrombus, almond embolism, anemia is presenting with right flank pain that has been ongoing since yesterday. She is endorsing fevers that are more than normal because of her lupus, chills, nausea vomiting, dull right flank pain. She has had pain like this before but she feels it has been a while. She has no urinary symptoms though she does produce some urine. She had a fever 102 F yesterday. She is feeling hungry and endorsing good appetite. She has no GI symptoms, no dizziness. She has experiences some shaking and headaches but currently is free of those symptoms. In the ER he was negative for infection, chest x-ray was negative she was tachycardic at 104 temperature 37.8. Her BUN was 27 creatinine was 5.94, platelets were 44. Blood cultures were drawn. CT kidney stone protocol showed a concern for pyelonephritis on the right side with fat stranding, and she was given 1 dose of 2g IV ceftriaxone. Patient is saying that she gets dialysis on Tuesday that she is not due for one today. She was recently put on high-dose prednisone 60 mg for 1 week for a lupus flare up by Dr. White that she Has finished the course. She saying that she started dialysis in December of last year. Patient is admitted to the [place] team for pyelonephritis" Doing [facility] admission patient is found to have lupus nephritis based on nephrology assessment, she was given medication CellCept, prednisone, Bactrim to treat it accordingly. Her pain was controlled on morphine IV as well as by mouth oxycodone. On 04/27, 04/28 patient expressed desire to be discharged home on by mouth medications. Her abdominal examination on the morning of 04/28 was completely benign. The patient did not want any pain medication to take home, but we have given her the 3 above medications and prescription for Zofran and oxycodone. Later in the afternoon patient has presented to the emergency room waiting room asking to be seen again. I have talked with her on the phone, she states that she took the prescription to fill her prescriptions at [facility], but they needed till tomorrow to fill her prescription, and she been home without any medication. Soon after she became overwhelmed with abdominal pain, which was not present on the in the a.m. the night before. She also had nausea that is so severe that she decided to come back to the hospital. She states she does not know why she got so sick this afternoon. On my examination, patient appeared mildly edematous (she confirms to me that every time she takes prednisone she swells up), cooperative, asking for pain medication for her abdominal pain. Expressed no other concerns. Patient is admitted back to a room #1016 under [facility] Course This is a 21 yo Female with extensive kidney history thought to be due to lupus nephritis, is presenting today lupus nephritis that was previously diagnosed during her 04/26/17 through 04/28/17 admission # acute on chronic lupus nephritis, present on admission active -- Patient had abdominal pain in a different location from before (before she had right flank pain), I had discussed with her in the a.m that she would have pain, she opted to take by mouth medication to go home, however was unable to obtain medication as pharmacy needed at the to fill her medications. She also made that appointment with her physician Dr. Cook in rheumatology for Tuesday -- We will consult nephrology Dr. 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, currently on dialysis -- MWF dialysis per nephrology -- Cont home renal meds -- Consult nephrology, we appreciated their recommendations Nausea, present on admission active -- IV Zofran when necessary -- She is given a prescription for Zofran for discharge Depression and anxiety chronic active -- Continued home medications -- Hydroxyzine when necessary is ordered Insomnia chronic active -- Continue her medication Correction to prior inpatient statement : Patient does not need more than two midnight stay per my review Exam Vital Signs (Last) Date Time Temp Pulse Resp B/P Pulse Ox O2 Delivery O2 Flow Rate FiO2 04/30/17 07:27 36.7 55 18 155/91 99 Room Air Exam General: NAD, laying in bed, some what distressed HEENT: NCAT, facial edema noted Eyes: [place] conjunctivae. No ptosis, PERRL Neck: No masses, trachea midline, no thyromegaly Lungs: CTA with normal respiratory effort, no crackles or wheezes CV: RRR, no murmurs/rubs/gallops, normal PMI GI: Soft, non-tender with no hepatosplenomegaly, tenderness over bladder MSK: Normal gait and station, no digital cyanosis Skin: Warm and dry. No rash, lesions or ulcers Psych: A&O X3, with appropriate affect Test 04/29/17 05:53 Sodium Level 132mEq/L (134-144) Potassium Level 5.7mEq/L (3.5-5.2) Chloride Level 86mEq/L (97-108) Carbon Dioxide Level 22mmol/L (18-29) Blood Urea Nitrogen 59mg/dL (6-20) Creatinine 9.93mg/dL (0.57-1.00) Estimat Glomerular Filtration Rate 7mL/min (>59) Glucose Level 90mg/dL (60-99) Calcium Level 8.1mg/dL (8.5-10.1) Total Bilirubin 0.3mg/dL (0.0-1.2) Aspartate Amino Transf (AST/SGOT) 16U/L (0-50) Alanine Aminotransferase (ALT/SGPT) 20U/L (0-32) Alkaline Phosphatase 117U/L (25-150) Total Protein 6.8g/dL (6.4-8.4) Albumin 3.9g/dL (3.4-5.0) Discharge Medications Discharge Medications Amlodipine (Amlodipine) 10 Mg Tablet 10 MG PO QAM (Reported) Cinacalcet (Sensipar) 30 Mg Tablet 30 MG PO DAILY (Reported) Citalopram (Citalopram) 10 Mg Tablet 10 MG PO DAILY Prescribed by: TANISHA MENDIOLA DO Losartan Potassium (Losartan Potassium) 50 Mg Tablet 50 MG PO DAILY (Reported) Metoprolol Succinate ER (Metoprolol Succinate ER) 100 Mg Tab.er.24h 100 MG PO QAM (Reported) Mycophenolate Mofetil (Cellcept) 250 Mg Capsule 250 MG PO BIDAC Prescribed by: STACI GUTIERREZ DO Omeprazole (Omeprazole) 20 Mg Capsule.dr 20 MG PO Every Other Day (Reported) Prednisone (Deltasone) 20 Mg Tablet 40 MG PO DAILY Prescribed by: STACI GUTIERREZ DO Sevelamer Carbonate (Renvela) 800 Mg Tablet 800 MG PO QID (Reported) Sulfamethoxazole/Trimeth 800-160 mg (Bactrim DS 800-160 mg) 1 Each Tablet 1 TABLET PO MoWeFr Prescribed by: STACI GUTIERREZ DO Zolpidem (Zolpidem) 5 Mg Tablet 5 MG PO HS (Reported) As needed oxyCODONE (oxyCODONE) 5 Mg Tablet 5 MG PO Q4H PRN PRN FOR SEVERE Prescribed by: STACI GUTIERREZ DO Followup Plan Follow-up plan Please see Dr. Cook 05/02/17 Please pickle maker your scripts from pharmacy F/U for dialysis MWF Discharge Diet: Renal Diet Discharge Activity: Other (pl do not drive if you are taking pain meds) Time spent > 35 min Staci Gutierrez DO Apr 30, 2017 10:06
[2017-05-17] MEDS ORDERED: MYCO250C PO (11:09)
[2017-05-31] MEDS ORDERED: PRE20 PO (08:57)
== END 2017-04-30 13:39 | disposition home or self-care (01) ==
LOC: INTOOBSV 14:30 → OSC 14:30 → SED 14:30 → EDSTATUS 15:32
PROVIDERS: ADMIT Family Medicine; ATTEND Family Medicine
DX: M32.14 Glomerular disease in systemic lupus erythematosus (principal); I12.0 Hypertensive chronic kidney disease with stage 5 chronic kidney disease or end stage renal disease; N18.6 End stage renal disease; Z99.2 Dependence on renal dialysis; F32.9 Major depressive disorder, single episode, unspecified; F41.9 Anxiety disorder, unspecified; R11.0 Nausea; G47.00 Insomnia, unspecified; F12.90 Cannabis use, unspecified, uncomplicated; Z87.891 Personal history of nicotine dependence; Z79.52 Long term (current) use of systemic steroids
CPT/HCPCS: 36415; 80048; 80053; 90935; G0378; G0379; J2270; J2405; J3490; J7517; Q0177